=== PATIENT | male | born 1945 | race Caucasian/White ===

== ENCOUNTER → 2019-07-20 07:58 | Outpatient (BNVA) | payer MEDICARE, OTHER, SELFPAY | PROVIDERS: Family Provider Family Medicine; PCP Family Medicine; Visit Provider Urology | DX: R97.20 Elevated prostate specific antigen [PSA] (principal) | CPT/HCPCS: 81001; 84153 ==

== ENCOUNTER → 2020-01-19 08:03 | Outpatient (BNVA) | payer MEDICARE, OTHER, SELFPAY | PROVIDERS: Family Provider Family Medicine; PCP Family Medicine; Visit Provider Urology | DX: R97.20 Elevated prostate specific antigen [PSA] (principal); Z87.438 Personal history of other diseases of male genital organs | CPT/HCPCS: 81003; 84153 ==

== ENCOUNTER → 2020-07-19 07:36 | Outpatient (BNVA) | payer MEDICARE, OTHER, SELFPAY | PROVIDERS: Family Provider Family Medicine; PCP Family Medicine; Visit Provider Urology | DX: R97.20 Elevated prostate specific antigen [PSA] (principal); Z87.438 Personal history of other diseases of male genital organs | CPT/HCPCS: 81003; 84153 ==

== ENCOUNTER → 2021-04-18 07:31 | Outpatient (BNVA) | payer MEDICARE, OTHER, SELFPAY | PROVIDERS: Family Provider Family Medicine; PCP Family Medicine; Visit Provider Urology | DX: Z87.438 Personal history of other diseases of male genital organs (principal); R97.20 Elevated prostate specific antigen [PSA] | CPT/HCPCS: 81003; 84153 ==

== ENCOUNTER → 2021-06-01 07:27 | Outpatient (BNVA) | payer MEDICARE, OTHER, SELFPAY | PROVIDERS: Family Provider Family Medicine; PCP Family Medicine; Visit Provider Urology | DX: R31.0 Gross hematuria (principal) | CPT/HCPCS: 81003 ==

== ENCOUNTER 2022-04-18 11:17 | Outpatient (CLI) | payer MEDICARE, OTHER, SELFPAY ==
[2022-04-18 12:42] LABS: Prostate Specific AG Urology 3.36 ng/mL (0-4)
== END 2022-04-18 11:18 | disposition home or self-care (01) ==
LOC: LAB 11:26
PROVIDERS: PCP Family Medicine; Visit Provider Urology
DX: R97.20 Elevated prostate specific antigen [PSA] (principal)
CPT/HCPCS: 36415; 84153

== ENCOUNTER → 2022-04-24 07:54 | Outpatient (BNVA) | payer MEDICARE, OTHER, SELFPAY | PROVIDERS: PCP Family Medicine; Visit Provider Urology | DX: R97.20 Elevated prostate specific antigen [PSA] (principal); N40.1 Benign prostatic hyperplasia with lower urinary tract symptoms; Z98.890 Other specified postprocedural states; R31.0 Gross hematuria; Z87.438 Personal history of other diseases of male genital organs | CPT/HCPCS: 81003 ==

== ENCOUNTER 2022-07-27 12:21 | Outpatient (CLI) | payer MEDICARE, OTHER, SELFPAY ==
[2022-07-27 13:21] LABS: Anion Gap 14.3 (5-19); Blood Urea Nitrogen 15 mg/dL (8-23); Calcium 8.6 mg/dL (8.5-10.5); Carbon Dioxide 25 mmol/L (22-29); Chloride 105 mmol/L (98-107); Glucose 109 mg/dL (65-115); NT Pro B Type Natriuretic Pept 60 pg/mL (0-450); Osmolality Calculated 291 mOsm/kg (285-295); Potassium 4.3 mmol/L (3.5-5.1); Sodium 140 mmol/L (136-145)
== END 2022-07-27 12:22 | disposition home or self-care (01) ==
LOC: LAB 12:27
PROVIDERS: PCP Family Medicine; Visit Provider Student in an Organized Health Care Education/Training Program
DX: I10 Essential (primary) hypertension (principal); R60.0 Localized edema
CPT/HCPCS: 36415; 80048; 83880

== ENCOUNTER 2023-02-10 01:17 | Emergency (ER) | payer MEDICARE, OTHER, SELFPAY ==
[2023-02-10] VITALS (8 sets, daily range): BP systolic 101–137; BP diastolic 60–99; PULSE 79–159; RESP 13–22; TEMP 36.6; O2SAT 92–97; BMI 28.8
--- NOTE | 2023-02-10 01:33 | XRR_ITS ---
PROCEDURE INFORMATION: Exam: XR Chest Exam date and time: 02/10/2023 1:42 AM Age: 77 years old Clinical indication: Pain; Chest pressure; Patient HX: C/O chest discomfort with tachycardia in the 150s. ; Additional info: Palpitations TECHNIQUE: Imaging protocol: Radiologic exam of the chest. Views: 1 view. COMPARISON: CR XR chest 1V [id number] 05/03/2017 1:07 AM FINDINGS: Lungs: There are some strandy and hazy opacities present in the left lung base and some subtle increased interstitial opacities present in the right lower hemithorax may represent atelectasis. Mild pulmonary edema could have this appearance. Additionally bilateral basilar interstitial pneumonitis could this appearance. Pleural spaces: Unremarkable. No pleural effusion. No pneumothorax. Heart/Mediastinum: Unremarkable. No cardiomegaly. Bones/joints: Unremarkable. XR/XR chest 1V portable [id number] IMPRESSION: Strandy and hazy opacities present in the left lung base and some subtle increased interstitial opacity seen right lower hemithorax could represent atelectasis versus basilar interstitial pneumonitis or pulmonary edema.
--- NOTE | 2023-02-10 01:33 | ECG_ITS ---
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 Measurements Intervals [place] Rate: 154 P: 0 MD: 0 QRS: 3 QRSD: 90 T: 36 QT: 254 QTc: 407 Interpretive Statements ATRIAL FLUTTER WITH RAPID VENTRICULAR RESPONSE No previous ECG available for comparison Electronically Signed On 02-10-2023 9:58:35 TOUCH UP CARVER by Lawrence Camargo M.D. [email or web address] centerMI [id number] f
[2023-02-10] MEDS: dilTIAZem 5 mg/mL SDV 5 mL 15 MG IVP (01:37)
[2023-02-10 01:38] LABS: Basophils % 0.5 %; Eosinophils # 0.2 10^3/uL (0.0-0.8); Eosinophils % 2.9 %; Hematocrit 36.8 % (37-53); Lymphocytes # 0.7 10^3/uL (0.8-4.8); Lymphocytes % 8.2 %; Mean Corpuscular HGB Conc 35.1 g/dL (30-55); Mean Corpuscular Hemoglobin 33.3 pg (27-33); Mean Corpuscular Volume 95.1 fl (82-101); Mean Platelet Volume 9.2 fL (7.4-10.4); Monocytes # 0.9 10^3/uL (0.2-0.9); Monocytes % 11.1 %; Neutrophils # 6.08 10^3/uL (1.8-7.7); Neutrophils % 76.8 %; Nucleated Red Blood Cells % 0 %; Platelet Count 158 10^3/cmm (157-399); Red Blood Count 3.87 10^6/uL (3.85-5.65); Red Cell Distribution Width 12.7 % (12.1-15.1); White Blood Count 7.92 10^3/uL (3.29-11.43)
--- NOTE | 2023-02-10 01:53 | W.ED.ARRPALP ---
HPI - Arrhythmia/Palpitations General: Chief Complaint: Arrhythmia/Palpitations Stated Complaint: Chest tightness sob Time Seen by Provider: 02/10/23 01:26 Source: patient History of Present Illness: 77-year-old gentleman with history of atrial fibrillation. No history of coronary disease. He was recently taken off of diltiazem, as he believes his heart rate was getting too low. He states that he was put on propafenone which she has been taking religiously. Around 7 the last evening, he noticed that his heart was beating fast. It is continued to do so despite taking his night dose. He denies recent illness. He denies overt chest pain. He is having palpitations. He is mildly short of breath. No vomiting or diarrhea. No recent fever. MD complaint: rapid heart beat Associated symptoms: Deny nausea or vomiting Review of Systems Const: Denies: fever(s), chills or body aches Eyes: Denies: change in vision Card: Reports: palpitations; Denies: chest pain Resp: Reports: dyspnea; Denies: productive cough, non-productive cough or wheezing GI: Denies: abdominal pain, nausea, vomiting, diarrhea or hematochezia Skin/Breast: Denies: rash Neuro: Denies: headache(s), weakness in extremities, dizziness or confusion PFSH ED PFSH: Medical History History of prostatitis Normal colonoscopy Hypertension Hyperlipidemia Elevated PSA Chronically elevated PSA with normal ADARSH's. 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 Negative biopsy and follow-up -3 T MRI. Surgical History Hx of transurethral resection of prostate H/O vasectomy Family History Mother , at age 78 Myocardial infarction (lateral wall) Father , at age 83 Emphysema lung Social History Smoking and tobacco/nicotine status: never used tobacco/nicotine Alcohol intake: never Marital status: Current occupational status: employed Physical Exam Const: GENERAL APPEARANCE: cooperative and ill appearing (Mildly); not frail appearing HENMT: COMMON NORMALS: normocephalic, atraumatic and Normal external nose present HEAD & SCALP: normocephalic and atraumatic FACE & SINUS: normal facial exam and face symmetric NOSE: Normal external nose present Eye: COMMON NORMALS: Equal, round and reactive pupils present and EOMs intact bilaterally PUPIL: Yes Equal, round and reactive pupils present Neck/C-Spine: GENERAL: Yes trachea midline Chest: CHEST: Yes Symmetrical chest wall rise Resp: COMMON NORMALS: normal respiratory effort, No retractions, No use of accessory muscles and clear to auscultation bilaterally AUSCULTATION: clear to auscultation bilaterally Cardio: COMMON NORMALS: regular rate RATE: regular rate and tachycardic RHYTHM: abnormal rhythm irregularly irregular GI: COMMON NORMALS: Normal to inspection, nondistended, normoactive bowel sounds present Extremity: GENERAL: Yes edema (1+) Neuro: JOSE COMA SCALE: document GCS findings [place] coma scale eye opening: Spontaneous Jose coma scale verbal response: Orientated [place] coma scale motor response: Obey commands Jose coma scale total score: 15 SENSORY EXAM: Yes extremities (intact) Psych: COMMON NORMALS: speech normal SPEECH: Yes normal speech Skin: COMMON NORMALS: no rashes or lesions noted GENERAL SKIN EXAM: no rashes or lesions noted Course Vital Signs: Vital signs: Vital Signs Temperature 98 F 02/10/23 01:21 Pulse Rate 80 02/10/23 03:00 Respiratory Rate 22 H 02/10/23 03:00 Blood Pressure 115/60 02/10/23 03:00 Pulse Oximetry 93 02/10/23 03:00 Oxygen Delivery Me thod Room Air 02/10/23 03:00 MDM - Arrhythmia/Palpitations Medical Decision Making Patient presenting in atrial fibrillation with a rate of 160 or so. His EKG shows atrial flutter with a rate of 160, normal axis, no acute ST wave changes. The patient was bolused with 15 mg of diltiazem, which transiently slowed his rate, but his rate is still between 130 and 160. Spontaneous conversion to sinus rhythm with a rate of 80 following the initial bolus. No repeat boluses or drips given. Symptoms are resolved. CBC is not remarkable. BMP is not remarkable. His BNP is 872 with a troponin of 25. He had a recent cardiac catheterization showing no coronary disease. His TSH is mildly high. Chest x-ray is nonacute. He will be allowed discharge. He is to continue his normal medication. If symptoms recur, he was told that he may take 1 diltiazem at home and wait 1 to 1.5 hours to see if symptoms resolved prior to coming in unless he is significantly symptomatic. Otherwise he should return. Outpatient follow-up with his cardiology team at [facility]. Lab Data 02/10/23 01:25 02/10/23 01:25 Laboratory Results WBC 7.92 10^3/uL (3.29-11.43) 02/10/23 01:25 RBC 3.87 10^6/uL (3.85-5.65) 02/10/23 01:25 Hgb 12.90 g/dL (11.27-16.99) 02/10/23 01:25 Hct 36.8 % (37-53) L 02/10/23 01:25 MCV 95.1 fl (82-101) 02/10/23 01:25 MCH 33.3 pg (27-33) H 02/10/23 01:25 MCHC 35.1 g/dL (30-55) 02/10/23 01:25 RDW 12.7 % (12.1-15.1) 02/10/23 01:25 Plt Count 158 10^3/cmm (157-399) 02/10/23 01:25 MPV 9.2 fL (7.4-10.4) 02/10/23 01:25 Neut % (Auto) 76.8 % 02/10/23 01:25 Lymph % (Auto) 8.2 % 02/10/23 01:25 [place] % (Auto) 11.1 % 02/10/23 01:25 Eos % (Auto) 2.9 % 02/10/23 01:25 Baso % (Auto) 0.5 % 02/10/23 01:25 Neut # (Auto) 6.08 10^3/uL (1.8-7.7) 02/10/23 01:25 Lymph # (Auto) 0.7 10^3/uL (0.8-4.8) L 02/10/23 01:25 [place] # (Auto) 0.9 10^3/uL (0.2-0.9) 02/10/23 01:25 Eos # (Auto) 0.2 10^3/uL (0.0-0.8) 02/10/23 01:25 Baso # (Auto) 0.0 10^3/uL (0.0-0.1) 02/10/23 01:25 Nucleated RBC % (auto) 0 % 02/10/23 01:25 Nucleated RBCs # 0.0 /100WBC 02/10/23 01:25 PT 18.80 SECONDS (12.1-14.9) H 02/10/23 01:25 INR 1.52 (0.8-1.2) H 02/10/23 01:25 APTT 41.1 SECONDS (23.9-36.7) H 02/10/23 01:25 Sodium 139 mmol/L (136-145) 02/10/23 01:25 Potassium 4.0 mmol/L (3.5-5.1) 02/10/23 01:25 Chloride 101 mmol/L (98-107) 02/10/23 01:25 Carbon Dioxide 26 mmol/L (22-29) 02/10/23 01:25 Anion Gap 16.0 (5-19) 02/10/23 01:25 BUN 21 mg/dL (8-23) 02/10/23 01:25 Creatinine 1.0 mg/dL (0.7-1.2) 02/10/23 01:25 GFR Calculation Not Reportable 02/10/23 01:25 Glucose 168 mg/dL (65-115) H 02/10/23 01:25 Calculated Osmolality 295 mOsm/kg (285-295) 02/10/23 01:25 Calcium 9.3 mg/dL (8.5-10.5) 02/10/23 01:25 Total Bilirubin 0.6 mg/dL (0.15-1.2) 02/10/23 01:25 AST 17 U/L (0-40) 02/10/23 01:25 ALT 30 U/L (0-41) 02/10/23 01:25 Alkaline Phosphatase 71 U/L (40-130) 02/10/23 01:25 Troponin T Baseline 25 ng/L (0-15) H 02/10/23 01:25 NT-Pro-B Natriuret Pep 872 pg/mL (0-450) H 02/10/23 01:25 Total Protein 7.2 g/dL (6.6-8.7) 02/10/23 01:25 Albumin 4.1 g/dL (3.5-5.2) 02/10/23 01:25 Globulin 3.1 g/dL (1.3-4.6) 02/10/23 01:25 TSH 4.49 uIU/mL (0.27-4.20) H 02/10/23 01:25 XR interpretation done by ED provider, pending radiology final review Discharge Plan Discharge Patient Disposition: Home Clinical Impression: Atrial fibrillation with rapid ventricular response Condition: Stable Prescriptions: No Action diltiazem HCl [Cartia XT] 120 mg capsule,extended release 24hr 120 mg PO DAILY multivitamin Tablet 1 tab PO DAILY coenzyme Q10 [CoQ-10] 100 mg capsule 200 mg PO DAILY Glucosamine Chondroitin 550-30-1 mg capsule PO DAILY magnesium gluconate [Mag-G] 27 mg magnesium (500 mg) tablet 27 mg PO DAILY resveratrol 250 mg capsule See Rx Instructions PO DAILY Rx Instructions: PO daily; cholecalciferol (vitamin D3) 50 mcg (2,000 unit) capsule 50 mcg PO DAILY zinc 50 mg tablet 50 mg PO DAILY losartan 25 mg tablet 25 mg PO DAILY finasteride 5 mg tablet 5 mg PO QDAY Qty: 90 3RF atorvastatin 20 mg tablet 20 mg PO DAILY Qty: 90 3RF Discharge Orders: Discharge ED (Routine); Ordered 02/10/23 Ordered By: Sam Gutierrez Referrals: Kamron Stauffer DO [Primary Care Provider] - 4-7 days Patient Instructions: A-fib (Atrial Fibrillation) (ED) Activity Restrictions/Additional Instructions: Return for return of rapid heart rate, any chest discomfort, shortness of breath, other concerning symptoms. Follow-up with your doctor next week. Let your superintendent construction know you were here with rapid heart rate, they may wish to change or augment treatment. Coding Level of Care Code ED Cyber Ops Planner for Joseph Springer
[2023-02-10 01:54] LABS: INR 1.52 (0.8-1.2)
[2023-02-10 01:55] LABS: Partial Thromboplastin Time 41.1 SECONDS (23.9-36.7)
[2023-02-10] MEDS: sodium chloride 0.9% 1,000 ML 999 ML IV (02:00)
[2023-02-10 02:07] LABS: Troponin(5th) Baseline 25 ng/L (0-15)
[2023-02-10 02:15] LABS: Alanine Aminotransferase 30 U/L (0-41); Albumin Level 4.1 g/dL (3.5-5.2); Alkaline Phosphatase 71 U/L (40-130); Aspartate Amino Transferase 17 U/L (0-40); Blood Urea Nitrogen 21 mg/dL (8-23); Calcium 9.3 mg/dL (8.5-10.5); Carbon Dioxide 26 mmol/L (22-29); Chloride 101 mmol/L (98-107); Globulin 3.1 g/dL (1.3-4.6); Glucose 168 mg/dL (65-115); NT Pro B Type Natriuretic Pept 872 pg/mL (0-450); Osmolality Calculated 295 mOsm/kg (285-295); Sodium 139 mmol/L (136-145); Thyroid Stimulating Hormone 4.49 uIU/mL (0.27-4.20); Total Bilirubin 0.6 mg/dL (0.15-1.2); Total Protein 7.2 g/dL (6.6-8.7)
--- NOTE | 2023-02-10 03:33 | ECG_ITS ---
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 Measurements Intervals [place] Rate: 82 P: 21 [place]: 160 QRS: 4 QRSD: 90 T: 54 QT: 336 QTc: 394 Interpretive Statements SINUS RHYTHM LOW QRS VOLTAGE IN PRECORDIAL LEADS [QRS DEFLECTION < 1.0 mV IN CHEST LEADS] No previous ECG available for comparison Electronically Signed On 02-10-2023 10:00:28 JIG MAKER by Lawrence Camargo M.D. [id number]
== END 2023-02-10 03:14 | disposition home or self-care (01) ==
PROVIDERS: Emergency Provider Emergency Medicine; PCP Family Medicine
DX: I48.20 Chronic atrial fibrillation, unspecified (principal); I10 Essential (primary) hypertension; E78.5 Hyperlipidemia, unspecified
CPT/HCPCS: 71045; 80053; 83880; 84443; 84484; 85025; 85610; 85730; 93005; 96374; 99285; J3490; J7030

== ENCOUNTER 2023-02-11 17:47 | Emergency (ER) | payer MEDICARE, OTHER, SELFPAY ==
[2023-02-11] VITALS (30 sets, daily range): BP systolic 109–134; BP diastolic 65–80; PULSE 71–167; RESP 12–27; O2SAT 92–98; BMI 25.1
--- NOTE | 2023-02-11 18:01 | XRR_ITS ---
PROCEDURE INFORMATION: Exam: XR Chest Exam date and time: 02/11/2023 6:14 PM Age: 77 years old Clinical indication: Other: High heart rate; Additional info: Palpitations TECHNIQUE: Imaging protocol: Radiologic exam of the chest. Views: 1 view. COMPARISON: CR (CHEST, ) 02/10/2023 1:42 AM FINDINGS: Lungs: Subsegmental streaky opacity in the lateral left lung base, similar to prior allowing for differences in lung inflation, may represent atelectasis and/or consolidation. Pleural spaces: No large pleural effusion. No pneumothorax. Heart/Mediastinum: Unremarkable cardiomediastinal silhouette. Bones/joints: No acute abnormality. XR/XR chest 1V portable [id number] IMPRESSION: Streaky opacity in the lateral left lung base, similar to prior allowing for differences in lung inflation, may represent atelectasis and/or consolidation.
[2023-02-11] MEDS: dilTIAZem 5 mg/mL SDV 5 mL 25 MG IVP (18:06)
--- NOTE | 2023-02-11 18:06 | ECG_ITS ---
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 Measurements Intervals [place] Rate: 151 P: 0 [place]: 0 QRS: -9 QRSD: 85 T: 34 QT: 273 QTc: 434 Interpretive Statements ATRIAL FIBRILLATION WITH RAPID VENTRICULAR RESPONSE NONSPECIFIC ST & T-WAVE ABNORMALITY Compared to ECG 02/10/2023 02:57:48 T-wave abnormality now present Sinus rhythm no longer present Electronically Signed On 02-11-2023 22:58:02 INDEPENDENT SALES REPRESENTATIVE by Lawrence Camargo M.D. [id number] f
[2023-02-11 18:27] LABS: Basophils % 0.3 %; Eosinophils # 0.1 10^3/uL (0.0-0.8); Eosinophils % 1.3 %; Hematocrit 35.3 % (37-53); Lymphocytes # 0.8 10^3/uL (0.8-4.8); Lymphocytes % 10.9 %; Mean Platelet Volume 9.4 fL (7.4-10.4); Monocytes # 0.8 10^3/uL (0.2-0.9); Monocytes % 11.5 %; Neutrophils % 75.6 %; Nucleated Red Blood Cells % 0 %; Platelet Count 182 10^3/cmm (157-399); Red Blood Count 3.64 10^6/uL (3.85-5.65); Red Cell Distribution Width 12.9 % (12.1-15.1); White Blood Count 6.88 10^3/uL (3.29-11.43)
--- NOTE | 2023-02-11 18:27 | W.ED.ARRPALP ---
HPI - Arrhythmia/Palpitations General: Chief Complaint: Arrhythmia/Palpitations Stated Complaint: high bp Time Seen by Provider: 02/11/23 17:57 History of Present Illness: Presents to the ER with complaining of heart palpitations shortness of breath. Patient does have a history of A-fib and is on antiarrhythmic medicine. Patient has taken did not miss any doses. Patient had this same thing happened to him yesterday where he come in this ER and was given Cardizem and if complete workup and sent home. Patient does have Cardizem at home that when he was put on his new antiarrhythmic they told him to stop. Patient did take 1 dose of it today. It helped throughout the day but is heart rate Getting faster throughout the day until decided to come in for reevaluation. Review of Systems General: Reports: 10 or more systems reviewed and unremarkable except in HPI and below PFSH ED PFSH: Medical History History of prostatitis Normal colonoscopy Hypertension Hyperlipidemia Elevated PSA Chronically elevated PSA with normal ADARSH's. 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 Negative biopsy and follow-up -3 T MRI. Surgical History Hx of transurethral resection of prostate H/O vasectomy Family History Mother , at age 78 Myocardial infarction (lateral wall) Father , at age 83 Emphysema lung Social History Smoking and tobacco/nicotine status: never used tobacco/nicotine Alcohol intake: never Marital status: Current occupational status: employed Physical Exam Const: COMMON NORMALS: no acute distress, average body habitus, patient oriented x3, no limitations, healthy appearing, alert and well nourished HENMT: COMMON NORMALS: normocephalic, atraumatic, hearing grossly normal bilaterally, external ears normal, Normal external nose present, moist oral mucous membranes and oropharynx normal HEAD & SCALP: normocephalic and atraumatic NOSE: Normal external nose present EXTERNAL EAR: Yes external ears normal Neck/C-Spine: COMMON NORMALS: full ROM, no lymphadenopathy, supple, no meningeal signs, no JVD and Thyroid normal THYROID: Thyroid normal Chest: COMMONS NORMALS: normal inspection of the chest and normal palpation of entire chest wall Resp: COMMON NORMALS: normal respiratory effort, No retractions, No use of accessory muscles and clear to auscultation bilaterally AUSCULTATION: clear to auscultation bilaterally Cardio: COMMON NORMALS: no JVD, S1 normal heart sound present, S2 normal heart sound present, No gallops present (Cardio), No clicks present (Cardio), No murmurs present (Cardio) and No rub (Cardio); negative for regular rate (Irregularly irregular tachycardic rhythm) and negative for regular rhythm RATE: abnormal rate (Irregularly irregular tachycardic rhythm) RHYTHM: abnormal rhythm HEART SOUNDS: S1 normal heart sound present and S2 normal heart sound present GI: COMMON NORMALS: Normal to inspection, nondistended, normoactive bowel sounds present, Soft to palpation, non-tender, No hepatosplenomegaly present and no masses PALPATION: Yes Soft to palpation and Yes No hepatosplenomegaly present Neuro: COMMON NORMALS: patient oriented x3 SENSORIUM/ORIENTATION: Yes alert MENINGEAL SIGNS: Yes no meningeal signs Course Vital Signs: Vital signs: Vital Signs Pulse Rate 77 02/11/23 20:35 Respiratory Rate 17 02/11/23 20:35 Blood Pressure 125/65 02/11/23 20:35 Pulse Oximetry 92 02/11/23 20:35 Oxygen Delivery Me thod Room Air 02/11/23 17:52 MDM - Arrhythmia/Palpitations Medical Decision Making Presents to the ER in [facility] with RVR. Patient is already on propafenone. Patient took diltiazem earlier today which seemed to help but then when it started running out his rate climbs so then he came to the ER for further evaluation. Lab work was obtained cardiac enzymes chest x-ray. Patient was given 25 mg of Cardizem IV which slowed his heart rate down for a little while but then when he spit back up he was placed on a Cardizem drip. After a while his heart converted back into a sinus rhythm. Patient felt a lot better the drip was titrated off patient stayed in a sinus rhythm and patient said he is ready to go home. Patient can call his aerospace project engineer first thing in the morning. Patient be discharged. Differential Diagnosis Likely palpitations, artial fibrillation and artial flutter; Unlikely anxiety, sinus tachycardia, ventricular premature beats, supraventricular tachycardia, ventricular tachycardia or WPW Medical Records I reviewed the patient's medical records. Lab Data I reviewed the patient's lab results. 02/11/23 18:02 02/11/23 18:02 Radiology Impressions Chest X-Ray 02/11/23 18:01 IMPRESSION: Streaky opacity in the lateral left lung base, similar to prior allowing for differences in lung inflation, may represent atelectasis and/or consolidation. Laboratory Results WBC 6.88 10^3/uL (3.29-11.43) 02/11/23 18: RBC 3.64 10^6/uL (3.85-5.65) L 02/11/23 18: Hgb 12.00 g/dL (11.27-16.99) 02/11/23 18: Hct 35.3 % (37-53) L 02/11/23 18: MCV 97.0 fl (82-101) 02/11/23 18: MCH 33.0 pg (27-33) 02/11/23 18: MCHC 34.0 g/dL (30-55) 02/11/23 18: RDW 12.9 % (12.1-15.1) 02/11/23 18:02 Plt Count 182 10^3/cmm (157-399) 02/11/23 18:02 MPV 9.4 fL (7.4-10.4) 02/11/23 18:02 Neut % (Auto) 75.6 % 02/11/23 18: Lymph % (Auto) 10.9 % 02/11/23 18:02 [place] % (Auto) 11.5 % 02/11/23 18:02 Eos % (Auto) 1.3 % 02/11/23 18:02 Baso % (Auto) 0.3 % 02/11/23 18:02 Neut # (Auto) 5.20 10^3/uL (1.8-7.7) 02/11/23 18:02 Lymph # (Auto) 0.8 10^3/uL (0.8-4.8) 02/11/23 18:02 [place] # (Auto) 0.8 10^3/uL (0.2-0.9) 02/11/23 18:02 Eos # (Auto) 0.1 10^3/uL (0.0-0.8) 02/11/23 18:02 Baso # (Auto) 0.0 10^3/uL (0.0-0.1) 02/11/23 18:02 Nucleated RBC % (auto) 0 % 02/11/23 18:02 Nucleated RBCs # 0.0 /100WBC 02/11/23 18:02 Sodium 139 mmol/L (136-145) 02/11/23 18:02 Potassium 3.9 mmol/L (3.5-5.1) 02/11/23 18:02 Chloride 104 mmol/L (98-107) 02/11/23 18:02 Carbon Dioxide 24 mmol/L (22-29) 02/11/23 18:02 Anion Gap 14.9 (5-19) 02/11/23 18:02 BUN 22 mg/dL (8-23) 02/11/23 18:02 Creatinine 1.2 mg/dL (0.7-1.2) 02/11/23 18:02 GFR Calculation Not Reportable 02/11/23 18:02 Glucose 184 mg/dL (65-115) H 02/11/23 18:02 Calculated Osmolality 296 mOsm/kg (285-295) H 02/11/23 18:02 Calcium 8.5 mg/dL (8.5-10.5) 02/11/23 18:02 Magnesium 2.1 mg/dL (1.7-2.3) 02/11/23 18:02 Total Bilirubin 0.6 mg/dL (0.15-1.2) 02/11/23 18:02 AST 15 U/L (0-40) 02/11/23 18:02 ALT 24 U/L (0-41) 02/11/23 18:02 Alkaline Phosphatase 62 U/L (40-130) 02/11/23 18:02 Troponin T Baseline 26 ng/L (0-15) H 02/11/23 18:02 Total Protein 6.7 g/dL (6.6-8.7) 02/11/23 18:02 Albumin 4.0 g/dL (3.5-5.2) 02/11/23 18:02 Globulin 2.7 g/dL (1.3-4.6) 02/11/23 18:02 All radiology interpretation(s) finalized by discharge EKG Data EKG 1: I personally reviewed and interpreted this EKG as follows: EKG interpretation date: 02/11/23 EKG interpretation time: 18:06 Prior EKG tracings: available for review Interpretation: EKG showed ventricular rate 151 beats minute, QRS duration 85, QTc of 359, atrial fibrillation with RVR, nonspecific ST-T wave abnormality Other EKG comments: Chest X-Ray 02/11/23 18:01 IMPRESSION: Streaky opacity in the lateral left lung base, similar to prior allowing for differences in lung inflation, may represent atelectasis and/or consolidation. Discharge Plan Discharge Patient Disposition: Home Clinical Impression: Atrial fibrillation with rapid ventricular response Condition: Stable Prescriptions: No Action diltiazem HCl [Cartia XT] 120 mg capsule,extended release 24hr 120 mg PO DAILY multivitamin Tablet 1 tab PO DAILY coenzyme Q10 [CoQ-10] 100 mg capsule 200 mg PO DAILY Glucosamine Chondroitin 550-30-1 mg capsule PO DAILY magnesium gluconate [Mag-G] 27 mg magnesium (500 mg) tablet 27 mg PO DAILY resveratrol 250 mg capsule See Rx Instructions PO DAILY Rx Instructions: PO daily; cholecalciferol (vitamin D3) 50 mcg (2,000 unit) capsule 50 mcg PO DAILY zinc 50 mg tablet 50 mg PO DAILY losartan 25 mg tablet 25 mg PO DAILY finasteride 5 mg tablet 5 mg PO QDAY Qty: 90 3RF atorvastatin 20 mg tablet 20 mg PO DAILY Qty: 90 3RF Discharge Orders: Discharge ED (Routine); Ordered 02/11/23 Ordered By: Dean Massey Referrals: Myron Abbasi DO [Primary Care Provider] - 1 week Patient Instructions: Atrial Fibrillation Activity Restrictions/Additional Instructions: Please call your aerospace project engineer first thing in the morning. Otherwise plan on following up with your family practice physician within next 7 to 10 days for further evaluation and treatment. If your heart converts back into atrial fibrillation please feel free to return to the ER. Coding Level of Care Code ED Vet Assistant for Joseph Springer
[2023-02-11] MEDS: dilTIAZem 100 MG in sodium chloride 0.9% (add-van) 100 ML IV (18:41)
[2023-02-11 18:44] LABS: Alanine Aminotransferase 24 U/L (0-41); Alkaline Phosphatase 62 U/L (40-130); Anion Gap 14.9 (5-19); Aspartate Amino Transferase 15 U/L (0-40); Blood Urea Nitrogen 22 mg/dL (8-23); Calcium 8.5 mg/dL (8.5-10.5); Carbon Dioxide 24 mmol/L (22-29); Chloride 104 mmol/L (98-107); Globulin 2.7 g/dL (1.3-4.6); Glucose 184 mg/dL (65-115); Magnesium 2.1 mg/dL (1.7-2.3); Osmolality Calculated 296 mOsm/kg (285-295); Potassium 3.9 mmol/L (3.5-5.1); Sodium 139 mmol/L (136-145); Total Bilirubin 0.6 mg/dL (0.15-1.2); Total Protein 6.7 g/dL (6.6-8.7)
[2023-02-11 18:47] LABS: Troponin(5th) Baseline 26 ng/L (0-15)
== END 2023-02-11 21:16 | disposition home or self-care (01) ==
PROVIDERS: Emergency Provider Emergency Medicine; PCP Electrodiagnostic Medicine
DX: I48.20 Chronic atrial fibrillation, unspecified (principal); I10 Essential (primary) hypertension; E78.5 Hyperlipidemia, unspecified
CPT/HCPCS: 71045; 80053; 83735; 84484; 85025; 93005; 96365; 96375; 99285; J3490

== ENCOUNTER 2023-02-17 04:53 | Inpatient (IN) | payer MEDICARE, OTHER, SELFPAY ==
[2023-02-17] VITALS (13 sets, daily range): BP systolic 101–131; BP diastolic 61–89; PULSE 60–131; RESP 15–23; TEMP 36.7–37.6; O2SAT 90–96; BMI 29.5; BMI 30.1
--- NOTE | 2023-02-17 04:54 | ECG_ITS ---
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 Measurements Intervals [place] Rate: 131 P: 0 [place]: 0 QRS: 4 QRSD: 93 T: 56 QT: 312 QTc: 462 Interpretive Statements ATRIAL FIBRILLATION WITH RAPID VENTRICULAR RESPONSE Compared to ECG 02/11/2023 18:06:18 T-wave abnormality no longer present Electronically Signed On 02-17-2023 10:18:29 WOOL SCOURER by Lawrence Camargo M.D. [email or web address]/store/OM/[id number]
--- NOTE | 2023-02-17 05:01 | XRR_ITS ---
PROCEDURE INFORMATION: Exam: XR Chest Exam date and time: 02/17/2023 5:07 AM Age: 77 years old Clinical indication: Other: Palpitations, tachycardic, hypertensive; Patient HX: Palpitations with tachycardia and hypertension; Additional info: HTN TECHNIQUE: Imaging protocol: Radiologic exam of the chest. Views: 1 view. COMPARISON: CR (CHEST, ) 02/11/2023 6:14 PM FINDINGS: Lungs: Small dependent bibasilar atelectasis, left greater than right, with possible component of consolidation, especially in the left lower lobe. Mild bilateral pulmonary venous congestion without marjan pulmonary edema. Pleural spaces: No pleural effusion. No pneumothorax. Heart/Mediastinum: Cardiomediastinal silhouette is normal in size. Bones/joints: No acute fractures. XR/XR chest 1V portable [id number] IMPRESSION: 1. Small dependent bibasilar atelectasis, left greater than right, with possible component of consolidation, especially in the left lower lobe. 2. Mild bilateral pulmonary venous congestion without marjan pulmonary edema.
--- NOTE | 2023-02-17 05:02 | ED_ITS ---
HPI - General Adult 2 General: Chief complaint: Arrhythmia/Palpitations Stated complaint: high heart rate Time Seen by Provider: 02/17/23 04:55 Source: patient Mode of arrival: ambulatory Limitations: no limitations History of Present Illness: 77-year-old male who has a history of A- fib he is on Cardizem 120 mg extended release daily he also takes Rythmol. States over the last week he has been having increasing episodes of A-fib he is seen here twice last week. He denies any chest pain he has some dyspnea as he feels like his heart is racing. He denies any worsening improving factors. Denies any fever he states he is also had a cough over the last 5 days Associated symptoms: Reports dyspnea and palpitations; Deny chest pain, nausea, rash or vomiting Review of Systems 2 Const: Denies: fever(s), chills, body aches or change in appetite ENMT: Denies: throat pain or dental pain Card: Reports: palpitations; Denies: chest pain Resp: Reports: dyspnea and non-productive cough GI: Denies: abdominal pain, nausea, vomiting or diarrhea Musc: Denies: neck pain or back pain Skin/Breast: Denies: rash PFSH ED 2 PFSH: Medical History History of prostatitis Normal colonoscopy Hypertension Hyperlipidemia Elevated PSA Chronically elevated PSA with normal ADARSH's. 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 Negative biopsy and follow-up -3 T MRI. Surgical History Hx of transurethral resection of prostate H/O vasectomy Family History Mother , at age 78 Myocardial infarction (lateral wall) Father , at age 83 Emphysema lung Social History Smoking and tobacco/nicotine status: never used tobacco/nicotine Alcohol intake: never Marital status: Current occupational status: employed Course 2 Vital Signs: Vital signs: Vital Signs Temperature 99.6 F 02/17/23 04:57 Pulse Rate 116 H 02/17/23 05:42 Respiratory Rate 20 H 02/17/23 05:42 Blood Pressure 131/78 02/17/23 05:42 Pulse Oximetry 93 02/17/23 05:42 Oxygen Delivery Me thod Room Air 02/17/23 05:42 MDM - General Adult Medical Decision Making Patient presents with A-fib with RVR gave him 15 mg and 10 mg IV push he is still in the 130s did start a Cardizem drip he also had a low-grade fever along with cough x-ray shows lower lobe infiltrates COVID flu are negative we will get blood cultures start antibiotics will admit on a Cardizem drip. Medical Records I reviewed the patient's medical records. Lab Data I reviewed the patient's lab results. 02/17/23 05:07 02/17/23 05:07 Laboratory Results WBC 8.30 10^3/uL (3.29-11.43) 02/17/23 05:07 RBC 3.73 10^6/uL (3.85-5.65) L 02/17/23 05:07 Hgb 12.10 g/dL (11.27-16.99) 02/17/23 05:07 Hct 36.0 % (37-53) L 02/17/23 05:07 MCV 96.5 fl (82-101) 02/17/23 05:07 MCH 32.4 pg (27-33) 02/17/23 05:07 MCHC 33.6 g/dL (30-55) 02/17/23 05:07 RDW 12.9 % (12.1-15.1) 02/17/23 05:07 Plt Count 247 10^3/cmm (157-399) 02/17/23 05:07 MPV 8.6 fL (7.4-10.4) 02/17/23 05:07 Neut % (Auto) 83.8 % 02/17/23 05:07 Lymph % (Auto) 6.6 % 02/17/23 05:07 [place] % (Auto) 7.5 % 02/17/23 05:07 Eos % (Auto) 1.2 % 02/17/23 05:07 Baso % (Auto) 0.5 % 02/17/23 05:07 Neut # (Auto) 6.96 10^3/uL (1.8-7.7) 02/17/23 05:07 Lymph # (Auto) 0.6 10^3/uL (0.8-4.8) L 02/17/23 05:07 [place] # (Auto) 0.6 10^3/uL (0.2-0.9) 02/17/23 05:07 Eos # (Auto) 0.1 10^3/uL (0.0-0.8) 02/17/23 05:07 Baso # (Auto) 0.0 10^3/uL (0.0-0.1) 02/17/23 05:07 Nucleated RBC % (auto) 0 % 02/17/23 05:07 Nucleated RBCs # 0.0 /100WBC 02/17/23 05:07 Sodium 137 mmol/L (136-145) 02/17/23 05:07 Potassium 4.1 mmol/L (3.5-5.1) 02/17/23 05:07 Chloride 102 mmol/L (98-107) 02/17/23 05:07 Carbon Dioxide 26 mmol/L (22-29) 02/17/23 05:07 Anion Gap 13.1 (5-19) 02/17/23 05:07 BUN 13 mg/dL (8-23) 02/17/23 05:07 Creatinine 1.0 mg/dL (0.7-1.2) 02/17/23 05:07 GFR Calculation Not Reportable 02/17/23 05:07 Glucose 141 mg/dL (65-115) H 02/17/23 05:07 Calculated Osmolality 286 mOsm/kg (285-295) 02/17/23 05:07 Calcium 9.0 mg/dL (8.5-10.5) 02/17/23 05:07 Total Bilirubin 0.7 mg/dL (0.15-1.2) 02/17/23 05:07 AST 18 U/L (0-40) 02/17/23 05:07 ALT 30 U/L (0-41) 02/17/23 05:07 Alkaline Phosphatase 65 U/L (40-130) 02/17/23 05:07 NT-Pro-B Natriuret Pep 1207 pg/mL (0-450) H 02/17/23 05:07 Total Protein 7.1 g/dL (6.6-8.7) 02/17/23 05:07 Albumin 3.6 g/dL (3.5-5.2) 02/17/23 05:07 Globulin 3.5 g/dL (1.3-4.6) 02/17/23 05:07 Influenza Type A Ag negative (Negative) 02/17/23 05:34 Influenza Type B Ag negative (Negative) 02/17/23 05:34 SARS-CoV-2 Ag (Rapid) negative (Negative) 02/17/23 05:34 XR interpretation done by ED provider, pending radiology final review ED provider radiology interpretation(s): cxr lower lobe infiltrates EKG Data EKG 1: I personally reviewed and interpreted this EKG as follows: EKG interpretation date: 02/17/23 EKG interpretation time: 05:02 Interpretation: afib with rvr hr [address] or t wave abnormalities qrs 93 qtc 389 Discharge Plan Discharge Patient Disposition: Admitted As Inpatient Clinical Impression: Atrial fibrillation with rapid ventricular response, Pneumonia Condition: Stable Prescriptions: No Action diltiazem HCl [Cartia XT] 120 mg capsule,extended release 24hr 120 mg PO DAILY multivitamin Tablet 1 tab PO DAILY coenzyme Q10 [CoQ-10] 100 mg capsule 200 mg PO DAILY Glucosamine Chondroitin 550-30-1 mg capsule PO DAILY magnesium gluconate [Mag-G] 27 mg magnesium (500 mg) tablet 27 mg PO DAILY resveratrol 250 mg capsule See Rx Instructions PO DAILY Rx Instructions: PO daily; cholecalciferol (vitamin D3) 50 mcg (2,000 unit) capsule 50 mcg PO DAILY zinc 50 mg tablet 50 mg PO DAILY losartan 25 mg tablet 25 mg PO DAILY finasteride 5 mg tablet 5 mg PO QDAY Qty: 90 3RF atorvastatin 20 mg tablet 20 mg PO DAILY Qty: 90 3RF Referrals: Myron Abbasi DO [Primary Care Provider] - Coding Level of Care Code ED Model Maker for Joseph Springer
[2023-02-17] MEDS: sodium chloride 0.9% 1,000 ML 999 ML IV (05:08)
[2023-02-17] MEDS: dilTIAZem 5 mg/mL SDV 5 mL 15 MG IVP (05:09)
[2023-02-17 05:12] LABS: Basophils % 0.5 %; Eosinophils # 0.1 10^3/uL (0.0-0.8); Eosinophils % 1.2 %; Lymphocytes # 0.6 10^3/uL (0.8-4.8); Lymphocytes % 6.6 %; Mean Corpuscular HGB Conc 33.6 g/dL (30-55); Mean Corpuscular Hemoglobin 32.4 pg (27-33); Mean Corpuscular Volume 96.5 fl (82-101); Mean Platelet Volume 8.6 fL (7.4-10.4); Monocytes # 0.6 10^3/uL (0.2-0.9); Monocytes % 7.5 %; Neutrophils # 6.96 10^3/uL (1.8-7.7); Neutrophils % 83.8 %; Nucleated Red Blood Cells % 0 %; Platelet Count 247 10^3/cmm (157-399); Red Blood Count 3.73 10^6/uL (3.85-5.65); Red Cell Distribution Width 12.9 % (12.1-15.1)
[2023-02-17] MEDS: acetaminophen 500 mg Tablet 1000 MG PO (05:24)
--- NOTE | 2023-02-17 05:25 | PC.NURSE ---
Pt and refused Covid and Flu nasal swabs stating They do not belive in Covid and do not want anything in his nose.
[2023-02-17 05:30] LABS: Alanine Aminotransferase 30 U/L (0-41); Albumin Level 3.6 g/dL (3.5-5.2); Alkaline Phosphatase 65 U/L (40-130); Anion Gap 13.1 (5-19); Aspartate Amino Transferase 18 U/L (0-40); Blood Urea Nitrogen 13 mg/dL (8-23); Carbon Dioxide 26 mmol/L (22-29); Chloride 102 mmol/L (98-107); Globulin 3.5 g/dL (1.3-4.6); Glucose 141 mg/dL (65-115); Osmolality Calculated 286 mOsm/kg (285-295); Potassium 4.1 mmol/L (3.5-5.1); Sodium 137 mmol/L (136-145); Total Bilirubin 0.7 mg/dL (0.15-1.2); Total Protein 7.1 g/dL (6.6-8.7)
[2023-02-17] MEDS: dilTIAZem 5 mg/mL SDV 5 mL 10 MG IVP (05:39)
[2023-02-17 05:51] LABS: NT Pro B Type Natriuretic Pept 1207 pg/mL (0-450)
[2023-02-17 05:53] LABS: Influenza A by IFA negative (Negative); Influenza B by IFA negative (Negative); SARS Covid-2 Antigen negative (Negative)
[2023-02-17] MEDS: dilTIAZem 100 MG in sodium chloride 0.9% (add-van) 100 ML IV (06:35)
[2023-02-17] MEDS: cefTRIAXone 1,000 MG in sodium chloride 0.9% (plus) 50 ML 100 MG IV (06:37)
[2023-02-17] MEDS: azithromycin 500 MG in sodium chloride 0.9% 250 ML 250 MG IV (06:54)
[2023-02-17] MEDS: pantoprazole DR 40 mg Tablet PO (08:24)
[2023-02-17] MEDS: enoxaparin 40 mg/0.4 mL Syringe SUBCUT (08:38)
--- NOTE | 2023-02-17 10:14 | USCV_ITS ---
Jan Beckwith Age: 77 Gender: M : 1945 Exam Date: 02/17/2023 16:40 Ordering Phys: Red Chapa MD Technologist: Olu Ashraf Exam Location: [facility] [place] Indication: afib BP: 116 / 61 HR: 61 Rhythm: Sinus Technical Quality: Adequate MEASUREMENTS (Male / Female) Normal Values 2D ECHO LVOT Diameter 2.0 cm LV Ejection Fraction MOD 2C 59.5 % LV Ejection Fraction 2C AL 60.4 % LA Diameter 3.7 cm LA Width 3.2 cm LA Height 4.7 cm RA Width 4.1 cm RA Height 4.0 cm Aorta at Sinotubular Diameter 2.0 cm IVC Diameter 2.0 cm M-MODE Aortic Annulus Diameter 2.3 cm LA Ao Ratio MM 1.5 MV E Point Septal Separation 0.4 cm DOPPLER AV Peak Velocity 107.7 cm/s LVOT Peak Velocity 89.0 cm/s AV Area Cont Eq vti 2.1 cm squared AV Area Cont Eq pk 2.7 cm squared MV Peak Velocity 122.0 cm/s MV Area PHT 5.0 cm squared Mitral E to A Ratio 1.9 MV E' Velocity 47.5 cm/s Mitral E to MV E' Ratio 9.0 Mitral E to LV E' Lateral Ratio 8.0 Mitral E to LV E' Septal Ratio 10.3 TR Peak Velocity 276.7 cm/s TR Peak Gradient 30.6 mmHg TR Mean Velocity 207.1 cm/s TR Mean Gradient 18.5 mmHg TR Velocity Time Integral 88.7 cm Right Atrial Pressure 3.0 mmHg Pulmonary Artery Systolic Pressu 33.6 mmHg PV Peak Velocity 73.0 cm/s RV Acceleration Time 0.1 s RV Ejection Time 0.3 s RV AcT/ET 0.2 FINDINGS Left Ventricle Left ventricle is normal in size. LV systolic function is normal with EF 55 to 60%. No regional wall motion abnormalities are seen. Right Ventricle Normal in size and function Right Atrium Normal in size Left Atrium Normal in size Mitral Valve Structurally normal mitral valve. Mild mitral regurgitation. Aortic Valve Structurally normal aortic valve. No significant stenosis or regurgitation. Tricuspid Valve Mild tricuspid regurgitation. Pulmonary artery systolic pressure is normal. Pulmonic Valve Mild pulmonic regurgitation. Pericardium Normal Aorta Normal in size IVC Appears to be normal CONCLUSIONS LV systolic function is normal with EF 55 to 60%. Mitral regurgitation. Mild tricuspid regurgitation. Mild pulmonic regurgitation. No comparison studies are available Lawrence Camargo MD (Electronically Signed) Final Date: 18 February 2023 10:30 S
[2023-02-17 10:44] LABS: D Dimer 0.85 ug/mLFEU (0-0.59)
--- NOTE | 2023-02-17 10:45 | P.HP_ITS ---
Providers/Chief Complaint 2 Admitting Physician: Dorys Michaud MD Primary Care Provider: Myron Abbasi DO Chief Complaint: high heart rate History of Present Illness Jan Beckwith is a 77 year old male with past medical history of atrial fibrillation, hyperlipidemia, hypertension, obstructive sleep apnea on CPAP who is chronically on 225 mg of extended release propafenone for A-fib along with Xarelto for anticoagulation presented to the ER because of of rapid heart rate which he felt at around 3 AM along with difficulty in breathing. 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 Today is Saturday. Symptoms are not associated with chest pain, dizziness, nausea or vomiting. Currently he is on 15 of Cardizem Drip. Denies any other changes recently on medications. Also gives history of sleep apnea for which he uses CPAP at 10 nightly. Review of Systems 2 General: Reports: 10 or more systems reviewed and unremarkable except in HPI and below Const: Denies: fever(s), chills, body aches, change in appetite, change in weight, malaise, night sweats, diaphoresis, change in sleep pattern, daytime sleepiness or snoring Eyes: Denies: change in vision, blurry vision, photophobia, eye discomfort or eye discharge ENMT: Denies: throat pain, enlarged tonsils, hoarseness, mouth pain, oral sores, dry mouth, tinnitus, nasal congestion or post nasal drip Card: Denies: chest pain, palpitations, irregular heart rhythm, edema, swelling of feet/ankles, lightheadedness, syncope, pre-syncope, dyspnea on exertion, orthopnea, leg pain with exertion or acrocyanosis Resp: Denies: dyspnea, productive cough, non-productive cough, wheezing, stridor, pain on inspiration, change in phlegm color, hemoptysis or chest congestion GI: Denies: abdominal pain, nausea, vomiting, hematemesis, coffee ground emesis, dysphagia, heartburn, diarrhea, constipation, bloating, GI cramping, change in bowel habits, pain on defecation, hematochezia or melena : Denies: flank pain, difficulty urinating, dysuria, urinary frequency, urinary urgency, urinary hesitancy, urinary dribbling, difficulty starting urination, change in urine stream, nocturia or hematuria Musc: Denies: neck pain, back pain, extremity pain, joint pain, joint swelling, joint redness, joint stiffness or limited range of motion Neuro: Denies: headache(s), numbness in extremities, weakness in extremities, sensory changes, lack of coordination, difficulty walking, frequent falls, dizziness, vertigo, confusion, Slurred speech present, difficulty communicating thoughts or seizure-like activity Psych: Denies: anxiety, depression, mood swings, panic attacks, hopelessness or irritability Endo: Denies: polyuria, polydipsia, tired all the time, cold intolerance, excessive sweating, flushing or heat intolerance Mak/Lymph: Denies: easy bruising or easy bleeding All/Imm: Denies: tongue swelling, facial swelling or acute wheezing Medications/Allergies Home Medications Medication Instructions Recorded Confirmed Last Taken Type cholecalciferol (vitamin D3) 50 50 mcg PO DAILY 07/20/19 02/17/23 02/15/23 History mcg (2,000 unit) capsule coenzyme Q10 100 mg capsule 200 mg PO DAILY 07/20/19 02/17/23 02/15/23 History (CoQ-10) diltiazem HCl 120 mg 120 mg PO DAILY 07/20/19 02/17/23 02/15/23 History capsule,extended release 24 hr (Cartia XT) glucosamine sulf dipot 1 cap PO DAILY 07/20/19 02/17/23 02/15/23 History chlr,msm,chond 550 mg-C 30 mg-sunny 1 mg capsule (Glucosamine Chondroitin) magnesium gluconate 27 mg 27 mg PO DAILY 07/20/19 02/17/23 02/15/23 History magnesium (500 mg) tablet (Mag-G) multivitamin 1 tab PO DAILY 07/20/19 02/17/23 02/15/23 History resveratrol 250 mg capsule 250 mg PO DAILY 07/20/19 02/17/23 02/15/23 History finasteride 5 mg tablet 5 mg PO QDAY #90 tabs 04/24/22 02/17/23 02/15/23 Rx losartan 25 mg tablet 25 mg PO DAILY 04/24/22 02/17/2323 History atorvastatin 40 mg tablet 40 mg PO DAILY 02/17/23 02/17/23 02/15/23 History propafenone 300 mg tablet 300 mg PO TID 02/17/23 02/17/23 02/15/23 History rivaroxaban 20 mg tablet (Xarelto) 20 mg PO DAILY 02/17/23 02/17/23 02/15/23 History zinc gluconate 50 mg tablet 50 mg PO DAILY 02/17/23 02/17/23 02/15/23 History Allergies Allergy/AdvReac Type Severity Reaction Status Date / Time Penicillins Allergy Unknown Verified 04/24/22 07:59 phenylephrine Allergy Unknown Verified 04/24/22 07:59 Sulfa (Sulfonamide Allergy Unknown Verified 04/24/22 07:59 Antibiotics) PFSH Acute 2 PFSH: Medical History (Updated 02/17/23 @ 10:48 by Red Chapa MD) History of prostatitis Normal colonoscopy Hypertension Hyperlipidemia Elevated PSA Chronically elevated PSA with normal ADARSH's. 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 Negative biopsy and follow-up -3 T MRI. Surgical History Hx of transurethral resection of prostate H/O vasectomy Family History Mother , at age 78 Myocardial infarction (lateral wall) Father , at age 83 Emphysema lung Social History Smoking and tobacco/nicotine status: never used tobacco/nicotine Alcohol intake: never Marital status: Current occupational status: employed Vitals/I&O/Wt Last Vital Signs Temp 98.0 F 02/17/23 08:00 Pulse 113 H 02/17/23 08:00 Resp 23 H 02/17/23 08:00 BP 101/66 02/17/23 08:00 Pulse Ox 94 02/17/23 08:00 O2 Del Method Room Air 02/17/23 08:00 02/16/23 02/17/23 02/17/23 22:59 06:59 14:59 Intake Total 1051.583 / 1051.583 242 / 242 Balance 1051.583 / 1051.583 242 / 242 Weight last 48 hrs Weight 95.254 kg Weight 90.718 kg Physical Exam 2 Narrative: General: No acute distress, AO x3 HEENT: PERRLA, pupils bilaterally equal and reactive Chest: Normal vesicular breath sounds, no added sounds, equal good air entry bilaterally CVS: S1-S2 irregularly irregular, tachycardia, no gallops, no rubs Abdomen: Soft, nontender, no organomegaly, bowel sounds present Neuro: No focal deficits, no facial deformity, AO x3, power 5/5 in all limbs Data 02/17/23 05:07 02/17/23 05:07 A&P Assessment and plan (1) Atrial fibrillation with rapid ventricular response: Currently on Cardizem drip at 15. Continue with home dose of propafenone 300 mg 3 times a day. Start on Cardizem 60 mg every 6 hourly. Wean Cardizem drip keeping heart rate below 100. Normal saline at 75 cc/h. Continue with home dose of Xarelto. Check TSH, free T3 and free T4. Check echocardiogram once heart rate is below 100. (2) Hyperlipidemia: Continue with home dose of statin. Check lipid panel. (3) Hypertension: Goal blood pressure less than 140/90 mmHg. Hold off on home dose of losartan. Uptitrate as for goal blood pressures. Plan CODE STATUS: Full code Cardiac diet Xarelto will suffice for DVT prophylaxis Protonix for PUD prophylaxis. Attestations 2 Medical Necessity Statement*: Admit for more than 2 midnights for management of atrial fibrillation with rapid ventricular response on Cardizem drip Diagnoses Atrial fibrillation with rapid ventricular response I48.91 Hyperlipidemia E78.5 Hypertension I10
[2023-02-17 11:01] LABS: Procalcitonin 0.04 ng/mL (0-0.5); Thyroid Stimulating Hormone 1.86 uIU/mL (0.27-4.20); Vitamin B12 695 pg/mL (232-1245)
[2023-02-17] MEDS: sodium chloride 0.9% 1,000 ML 75 ML IV (11:11)
[2023-02-17 11:12] LABS: Iron 21 ug/dL (59-158); Percent Saturation 10.2 % (20-50); Total Iron Binding Capacity 204 mcg/dl; Unsaturated Iron Binding 183 ug/dL (112-347)
[2023-02-17] MEDS: dilTIAZem 60 mg Tablet PO (11:15)
[2023-02-17] MEDS: finasteride 5 mg Tablet PO (11:15)
[2023-02-17] MEDS: propafenone 150 mg Tablet 300 MG PO ×3 (11:15→20:59)
[2023-02-17 11:34] LABS: T3 Free 2.3 PG/ML (2.0-4.4)
[2023-02-17 11:48] LABS: Add Urine Microscopic? NO; Charge for UA Resulting for Rev
[2023-02-17 11:50] LABS: Urine Appearance Clear (CLEAR); Urine Color Yellow (Yellow); pH Urine 7 (5-7)
[2023-02-17 11:51] LABS: Bilirubin Urine Neg (Negative); Blood Urine Neg (Negative); Glucose Urine UA 2+ (Normal); Ketones Urine Negative (Negative); Leukocyte Esterase Urine Negative (Negative); Nitrate Urine Negative (Negative); Protein Urine Neg (Negative); Urobilinogen Urine Norm (Negative)
[2023-02-17 12:00] LABS: Free T4 Free Thyroxine 1.18 ng/dL (0.82-1.77)
[2023-02-17] MEDS: ipratropium 0.5 mg/2.5 mL Neb INHALATION (12:35)
--- NOTE | 2023-02-17 20:20 | PC.NURSE ---
Spoke with regarding patients HR in the 60s. ordered to change cardizem dose to 30mg Q8hr with first dose now and to give 9pm dose of rythmol as ordered.
[2023-02-17] MEDS: dilTIAZem 30 mg Tablet PO (20:59)
[2023-02-18] VITALS (12 sets, daily range): BP systolic 113–135; BP diastolic 58–73; PULSE 60–77; RESP 16–24; TEMP 36.9–37.4; O2SAT 85–95
[2023-02-18 04:01] LABS: Basophils % 0.4 %; Eosinophils # 0.1 10^3/uL (0.0-0.8); Eosinophils % 1.3 %; Hematocrit 31.1 % (37-53); Lymphocytes # 0.8 10^3/uL (0.8-4.8); Lymphocytes % 9.3 %; Mean Corpuscular HGB Conc 32.2 g/dL (30-55); Mean Corpuscular Hemoglobin 32.1 pg (27-33); Mean Corpuscular Volume 99.7 fl (82-101); Mean Platelet Volume 9.3 fL (7.4-10.4); Monocytes # 0.7 10^3/uL (0.2-0.9); Neutrophils # 6.73 10^3/uL (1.8-7.7); Neutrophils % 80.4 %; Nucleated Red Blood Cells % 0 %; Platelet Count 246 10^3/cmm (157-399); Red Blood Count 3.12 10^6/uL (3.85-5.65); Red Cell Distribution Width 13.2 % (12.1-15.1); White Blood Count 8.37 10^3/uL (3.29-11.43)
[2023-02-18 04:12] LABS: Estmated Average Glucose 146; Hemoglobin A1C 6.7 % (4.0-6.0)
[2023-02-18 04:17] LABS: Chol HDL Ratio 2.91 mg/dL (1.0-5.00); Cholesterol 96 mg/dL (0-200); HDL Cholesterol 33 mg/dL (60-100); LDL Cholesterol Calculated 52 mg/dL (50-129); Magnesium 2.2 mg/dL (1.7-2.3); Phosphorus 3.3 mg/dL (2.5-4.5); Triglycerides 53 mg/dL (0-150); VLDL Cholestrol Calculation 11 mg/dL (0-30)
[2023-02-18] MEDS: dilTIAZem 30 mg Tablet PO ×3 (04:32→20:24)
[2023-02-18 04:34] LABS: Alanine Aminotransferase 26 U/L (0-41); Albumin Level 3.2 g/dL (3.5-5.2); Alkaline Phosphatase 53 U/L (40-130); Anion Gap 15.2 (5-19); Aspartate Amino Transferase 12 U/L (0-40); Blood Urea Nitrogen 15 mg/dL (8-23); Calcium 8.1 mg/dL (8.5-10.5); Carbon Dioxide 23 mmol/L (22-29); Chloride 106 mmol/L (98-107); Globulin 2.9 g/dL (1.3-4.6); Glucose 133 mg/dL (65-115); Osmolality Calculated 293 mOsm/kg (285-295); Potassium 4.2 mmol/L (3.5-5.1); Sodium 140 mmol/L (136-145); Total Bilirubin 0.5 mg/dL (0.15-1.2); Total Protein 6.1 g/dL (6.6-8.7)
[2023-02-18 04:35] LABS: Folate Level 18.9 ng/mL (4.5-32.2)
[2023-02-18] MEDS: cefTRIAXone 1,000 MG in sodium chloride 0.9% (plus) 50 ML 100 MG IV (05:45)
[2023-02-18] MEDS: atorvastatin 40 mg Tablet PO (09:51)
[2023-02-18] MEDS: propafenone 150 mg Tablet 300 MG PO ×3 (09:51→20:24)
[2023-02-18] MEDS: zinc gluconate 50 mg Tablet PO (09:51)
[2023-02-18] MEDS: pantoprazole DR 40 mg Tablet PO (09:51)
[2023-02-18] MEDS: rivaroxaban 10 mg Tablet 20 MG PO (09:51)
[2023-02-18] MEDS: finasteride 5 mg Tablet PO (09:51)
[2023-02-18] MEDS: multivitamin therapeutic Tablet 1 TAB PO (09:51)
--- NOTE | 2023-02-18 11:54 | P.DS_ITS ---
Discharge Providers Date of Admission: 02/17/23 06:42 Date of Discharge: February 18, 2023 Attending Provider at Admission: Dorys Michaud MD Attending Provider at Discharge: Jordana Gonzalez MD Primary Care Provider: Myron Abbasi DO Diagnoses at Discharge Discharge Diagnosis (1) Atrial fibrillation with rapid ventricular response: Status: Acute (2) Hyperlipidemia: Status: Acute (3) Hypertension: Status: Acute Reason for Visit Reason for Visit: high heart rate Discharge Data Studies Completed and Pending Completed Studies During Hospitalization Category Date Time Status XR chest 1V portable [id number] Stat Exams 02/17/23 05:01 Completed CV. echo complete* [id number] Routine Ultrasound 02/17/23 10:14 Completed Pending at discharge Category Date Time Status Blood Cultures ([facility]) Routine Lab 02/17/23 06:17 Received Blood Cultures ([facility]) Routine Lab 02/17/23 06:21 Received MAG [Magnesium] AM LABS Lab 02/19/23 04:00 Ordered MAG [Magnesium] AM LABS Lab 02/20/23 04:00 Ordered PHOS [Phosphorus] AM LABS Lab 02/19/23 04:00 Ordered PHOS [Phosphorus] AM LABS Lab 02/20/23 04:00 Ordered Radiology Impressions Chest X-Ray 02/17/23 05:01 IMPRESSION: 1. Small dependent bibasilar atelectasis, left greater than right, with possible component of consolidation, especially in the left lower lobe. 2. Mild bilateral pulmonary venous congestion without marjan pulmonary edema. Laboratory Results WBC 8.37 10^3/uL (3.29-11.43) 02/18/23 03:08 RBC 3.12 10^6/uL (3.85-5.65) L 02/18/23 03:08 Hgb 10.00 g/dL (11.27-16.99) L 02/18/23 03:08 Hct 31.1 % (37-53) L 02/18/23 03:08 MCV 99.7 fl (82-101) 02/18/23 03:08 MCH 32.1 pg (27-33) 02/18/23 03:08 MCHC 32.2 g/dL (30-55) 02/18/23 03:08 RDW 13.2 % (12.1-15.1) 02/18/23 03:08 Plt Count 246 10^3/cmm (157-399) 02/18/23 03:08 MPV 9.3 fL (7.4-10.4) 02/18/23 03:08 Neut % (Auto) 80.4 % 02/18/23 03:08 Lymph % (Auto) 9.3 % 02/18/23 03:08 [place] % (Auto) 8.0 % 02/18/23 03:08 Eos % (Auto) 1.3 % 02/18/23 03:08 Baso % (Auto) 0.4 % 02/18/23 03:08 Neut # (Auto) 6.73 10^3/uL (1.8-7.7) 02/18/23 03:08 Lymph # (Auto) 0.8 10^3/uL (0.8-4.8) 02/18/23 03:08 [place] # (Auto) 0.7 10^3/uL (0.2-0.9) 02/18/23 03:08 Eos # (Auto) 0.1 10^3/uL (0.0-0.8) 02/18/23 03:08 Baso # (Auto) 0.0 10^3/uL (0.0-0.1) 02/18/23 03:08 Nucleated RBC % (auto) 0 % 02/18/23 03:08 Nucleated RBCs # 0.0 /100WBC 02/18/23 03:08 D-Dimer 0.85 ug/mLFEU (0-0.59) H 02/17/23 05:07 Sodium 140 mmol/L (136-145) 02/18/23 03:08 Potassium 4.2 mmol/L (3.5-5.1) 02/18/23 03:08 Chloride 106 mmol/L (98-107) 02/18/23 03:08 Carbon Dioxide 23 mmol/L (22-29) 02/18/23 03:08 Anion Gap 15.2 (5-19) 02/18/23 03:08 BUN 15 mg/dL (8-23) 02/18/23 03:08 Creatinine 1.0 mg/dL (0.7-1.2) 02/18/23 03:08 GFR Calculation Not Reportable 02/18/23 03:08 Glucose 133 mg/dL (65-115) H 02/18/23 03:08 Estimat Average Glucose 146 02/18/23 03:08 Hemoglobin A1c 6.7 % (4.0-6.0) H 02/18/23 03:08 Calculated Osmolality 293 mOsm/kg (285-295) 02/18/23 03:08 Calcium 8.1 mg/dL (8.5-10.5) L 02/18/23 03:08 Phosphorus 3.3 mg/dL (2.5-4.5) 02/18/23 03:08 Magnesium 2.2 mg/dL (1.7-2.3) 02/18/23 03:08 Iron 21 ug/dL (59-158) L 02/17/23 05:07 TIBC 204 mcg/dl 02/17/23 05:07 % Saturation 10.2 % (20-50) L 02/17/23 05:07 Unsat Iron Binding 183 ug/dL (112-347) 02/17/23 05:07 Total Bilirubin 0.5 mg/dL (0.15-1.2) 02/18/23 03:08 AST 12 U/L (0-40) 02/18/23 03:08 ALT 26 U/L (0-41) 02/18/23 03:08 Alkaline Phosphatase 53 U/L (40-130) 02/18/23 03:08 NT-Pro-B Natriuret Pep 1207 pg/mL (0-450) H 02/17/23 05:07 Total Protein 6.1 g/dL (6.6-8.7) L 02/18/23 03:08 Albumin 3.2 g/dL (3.5-5.2) L 02/18/23 03:08 Globulin 2.9 g/dL (1.3-4.6) 02/18/23 03:08 Triglycerides 53 mg/dL (0-150) 02/18/23 03:08 Cholesterol 96 mg/dL (0-200) 02/18/23 03:08 LDL Cholesterol, Calc 52 mg/dL (50-129) 02/18/23 03:08 Total VLDL Cholesterol 11 mg/dL (0-30) 02/18/23 03:08 HDL Cholesterol 33 mg/dL (60-100) L 02/18/23 03:08 Cholesterol/HDL Ratio 2.91 mg/dL (1.0-5.00) 02/18/23 03:08 Vitamin B12 695 pg/mL (232-1245) 02/17/23 05:07 Folate 18.9 ng/mL (4.5-32.2) 02/18/23 03:08 Procalcitonin 0.04 ng/mL (0-0.5) 02/17/23 05:07 TSH 1.86 uIU/mL (0.27-4.20) 02/17/23 05:07 Free T4 1.18 ng/dL (0.82-1.77) 02/17/23 05:07 Free T3 2.3 PG/ML (2.0-4.4) 02/17/23 05:07 Urine Color Yellow (Yellow) 02/17/23 11:08 Urine Appearance Clear (CLEAR) 02/17/23 11:08 Urine pH 7 (5-7) 02/17/23 11:08 Ur Specific [place] 1.010 (1.005-1.030) 02/17/23 11:08 Urine Protein Neg (Negative) 02/17/23 11:08 Urine Glucose (UA) 2+ (Normal) H 02/17/23 11:08 Urine Ketones Negative (Negative) 02/17/23 11:08 Urine Blood Neg (Negative) 02/17/23 11:08 Urine Nitrate Negative (Negative) 02/17/23 11:08 Urine Bilirubin Neg (Negative) 02/17/23 11:08 Urine Urobilinogen Norm mg/dL (Negative) 02/17/23 11:08 Ur Leukocyte Esterase Negative (Negative) 02/17/23 11:08 Influenza Type A Ag negative (Negative) 02/17/23 05:34 Influenza Type B Ag negative (Negative) 02/17/23 05:34 SARS-CoV-2 Ag (Rapid) negative (Negative) 02/17/23 05:34 Vitals Last Vital Signs Temp 98.5 F 02/18/23 08:00 Pulse 77 02/18/23 08:51 Resp 16 02/18/23 08:51 BP 135/64 02/18/23 08:00 Pulse Ox 95 02/18/23 08:51 O2 Del Method Nasal Cannula 02/18/23 08:51 O2 Flow Rate 3 02/18/23 08:51 Discharge Plan Discharge Patient Disposition: Home Condition: Stable Prescriptions: No Action diltiazem HCl [Cartia XT] 120 mg capsule,extended release 24hr 120 mg PO DAILY multivitamin Tablet 1 tab PO DAILY coenzyme Q10 [CoQ-10] 100 mg capsule 200 mg PO DAILY Glucosamine Chondroitin 550-30-1 mg capsule 1 cap PO DAILY magnesium gluconate [Mag-G] 27 mg magnesium (500 mg) tablet 27 mg PO DAILY resveratrol 250 mg capsule 250 mg PO DAILY cholecalciferol (vitamin D3) 50 mcg (2,000 unit) capsule 50 mcg PO DAILY losartan 25 mg tablet 25 mg PO DAILY finasteride 5 mg tablet 5 mg PO QDAY Qty: 90 3RF atorvastatin 40 mg tablet 40 mg PO DAILY propafenone 300 mg tablet 300 mg PO TID zinc gluconate 50 mg Tablet 50 mg PO DAILY Xarelto 20 mg tablet 20 mg PO DAILY Referrals: Myron Abbasi DO [Primary Care Provider] - Patient Instructions: Opioid Safety Coding Level of Care Code Acute Code for g Fwd Diagnoses Atrial fibrillation with rapid ventricular response I48.91 Hyperlipidemia E78.5 Hypertension I10
--- NOTE | 2023-02-18 11:57 | XRR_ITS ---
PROCEDURE INFORMATION: Exam: XR Chest Exam date and time: 02/18/2023 1:06 PM Age: 77 years old Clinical indication: Condition or disease; Other: Concern forpneumonia; Additional info: R/O pneumonia TECHNIQUE: Imaging protocol: Radiologic exam of the chest. Views: 1 view. COMPARISON: CR (CHEST, ) 02/17/2023 5:07 AM FINDINGS: Lungs: Focal infiltrate is again seen in the left lateral lung base. Questionable developing stringy infiltrate in the right upper lung field. Pleural spaces: Unremarkable. No pleural effusion. No pneumothorax. Heart/Mediastinum: Unremarkable. No cardiomegaly. Bones/joints: Unremarkable. XR/XR chest 1V portable [id number] IMPRESSION: 1. Focal infiltrate is again seen in the left lateral lung base. 2. Questionable developing stringy infiltrate in the right upper lung field.
[2023-02-18 12:47] LABS: Procalcitonin 0.04 ng/mL (0-0.5)
[2023-02-18] MEDS: azithromycin 500 MG in sodium chloride 0.9% 250 ML 250 MG IV (13:12)
--- NOTE | 2023-02-18 13:26 | P.PN_ITS ---
Subjective 2 Subjective: Saturating 89% on room air. No conversational dyspnea however when talks saturation does drop down to 88. Home oxygen evaluation has been ordered at this time. Not on any oxygen at home previously. Currently in normal sinus rhythm. He is supposed to have an ablation done for atrial fibrillation this month in [facility] [place]. Sitting comfortably in bed at this time. Says he has been having chest congestion for the last few weeks. Does not feel short of breath. Vitals/I&O/Wt Last Vital Signs Temp 98.5 F 02/18/23 08:00 Pulse 72 02/18/23 12:00 Resp 19 H 02/18/23 12:00 BP 126/58 02/18/23 12:00 Pulse Ox 90 02/18/23 12:00 O2 Del Method Room Air 02/18/23 12:00 O2 Flow Rate 3 02/18/23 08:51 02/17/23 02/18/23 02/18/23 22:59 06:59 14:59 Intake Total 1227.5 / 1770.667 170 / 1940.667 440 / 440 Output Total 250 / 530 Balance 1227.5 / 1490.667 -80 / 1410.667 440 / 440 Weight last 48 hrs Weight 93.44 kg Weight 95.254 kg Weight 90.718 kg Physical Exam 2 Narrative: General: No acute distress, AO x3 HEENT: PERRLA, pupils bilaterally equal and reactive Chest: Normal vesicular breath sounds, no added sounds, equal good air entry bilaterally CVS: S1-S2 irregularly irregular, tachycardia, no gallops, no rubs Abdomen: Soft, nontender, no organomegaly, bowel sounds present Neuro: No focal deficits, no facial deformity, AO x3 Data 02/18/23 03:08 02/18/23 03:08 A&P Assessment and plan (1) Atrial fibrillation with rapid ventricular response: Stop Cardizem drip. Continue on Cardizem 30 every 6. Continue propafenone 300 3 times daily. Continue normal saline 75 cc/h. Continue home dose of Xarelto. Check D-dimer Check TSH, free T3 and free T4. Patient has converted to normal sinus rhythm. Continue above home medications. He will go for ablation as an outpatient after discharge in [place]. Will set up with a event monitor at discharge. Briefly curbside discussed with cardiology over the phone. Echo shows mild mitral regurgitation. (2) Hyperlipidemia: Continue with home dose of statin. Check lipid panel. (3) Hypertension: Goal blood pressure less than 140/90 mmHg. Hold off on home dose of losartan. Uptitrate as for goal blood pressures. (4) Hypoxia: #Community-acquired pneumonia Check home oxygen evaluation. Patient 8889% on room air and drops when he talks. Patient requiring 3 L nasal cannula with saturating 9495%. Chest x-ray reviewed. Focal infiltrate left lateral lung base. Questionable developing stringy infiltrate in right upper lung field. Continue on ceftriaxone IV and azithromycin 500 daily Check respiratory viral panel Check procalcitonin Check bacterial antigen. Check sputum culture and Gram stain DuoNeb every 6 hours as needed. Patient denies smoking. Will check As she was planning to discharge patient home today however will continue hospitalization for IV antibiotics today. (5) Pneumonia: Plan CODE STATUS: Full code Cardiac diet Xarelto will suffice for DVT prophylaxis Protonix for PUD prophylaxis. Attestations 2 Medical Necessity Statement*: Requires continued hospitalization for acute hypoxia requiring oxygen secondary to pneumonia. Diagnoses Atrial fibrillation with rapid ventricular response I48.91 Hyperlipidemia E78.5 Hypertension I10 Hypoxia R09.02 Pneumonia J18.9
--- NOTE | 2023-02-18 14:13 | PC.NURSE ---
Provider is notified that there is a shortage of PCR tests and provider decided that we can hold off on collecting the respiratory panel PCR.
[2023-02-18 14:39] LABS: D Dimer 1.83 ug/mLFEU (0-0.59)
--- NOTE | 2023-02-18 16:27 | CTR_ITS ---
PROCEDURE INFORMATION: Exam: CTA Chest With Contrast Exam date and time: 02/18/2023 7:21 PM Age: 77 years old Clinical indication: Abnormal findings; Abnormal diagnostic tests; Elevated d-dimer; Cough and shortness of breath; Patient HX: Cough with SOB. Dimer 1.83. History of afib. ; Additional info: R/O pe TECHNIQUE: Imaging protocol: Computed tomographic angiography of the chest with contrast. Exam focused on the arteries. 3D rendering (Not supervised by radiologist): MIP and/or 3D reconstructed images were created by the technologist. Radiation optimization: All CT scans at this facility use at least one of these dose optimization techniques: automated exposure control; mA and/or kV adjustment per patient size (includes targeted exams where dose is matched to clinical indication); or iterative reconstruction. Contrast material: OMNI 350; Contrast volume: 100 ml; Contrast route: INTRAVENOUS (IV); REPORTING DATA: Count of CT and Cardiac NM exams in prior 12 months: This patient has received 0 known CTs and 0 known cardiac nuclear medicine studies in the 12 months prior to the current study. COMPARISON: CR (CHEST, ) 02/18/2023 1:06 PM RADIATION DOSE METRICS: Total DLP (mGy-cm): 472.7 FINDINGS: Pulmonary arteries: No pulmonary embolus. The main pulmonary artery is enlarged measuring up to 3.2 cm which can be seen the setting of pulmonary artery hypertension. Aorta: Unremarkable. No aortic aneurysm. No aortic dissection. Lungs: Smooth septal markings throughout both lungs with peribronchial wall thickening. Ground-glass opacities throughout both lungs with a dependent distribution. Pleural spaces: Moderate bilateral pleural effusions with atelectatic changes in the lung bases. Heart: Unremarkable. No cardiomegaly. No pericardial effusion. Lymph nodes: Unremarkable. No enlarged lymph nodes. Bones/joints: Unremarkable. No acute fracture. Soft tissues: Unremarkable. CT/CT angio chest PE protcl [id number] IMPRESSION: 1. No pulmonary embolus. 2. Bilateral pleural effusions with smooth septal markings throughout both lungs and ground-glass opacities in a dependent distribution which can be seen in the setting CHF exacerbation. 3. Atelectatic changes in the lung bases with no focal consolidation.
--- NOTE | 2023-02-18 19:03 | PC.NURSE ---
Spoke with regarding patient needing home cpap unit but does not have it here in hospital. said order CPAP and RT to use our unit to home settings.
[2023-02-18] MEDS: iohexol 350 mg/mL 500 mL Btl (per mL) IV (19:26)
[2023-02-19] VITALS (10 sets, daily range): BP systolic 111–163; BP diastolic 72–95; PULSE 59–133; RESP 15–26; TEMP 36.6; O2SAT 92–95
[2023-02-19] MEDS: dilTIAZem 30 mg Tablet PO (03:58)
[2023-02-19 05:18] LABS: Basophils % 0.6 %; Eosinophils # 0.1 10^3/uL (0.0-0.8); Eosinophils % 1.3 %; Hematocrit 32.6 % (37-53); Lymphocytes # 0.8 10^3/uL (0.8-4.8); Lymphocytes % 12.3 %; Mean Corpuscular HGB Conc 30.7 g/dL (30-55); Mean Corpuscular Hemoglobin 32.1 pg (27-33); Mean Corpuscular Volume 104.5 fl (82-101); Mean Platelet Volume 9.3 fL (7.4-10.4); Monocytes # 0.7 10^3/uL (0.2-0.9); Monocytes % 10.6 %; Neutrophils # 4.59 10^3/uL (1.8-7.7); Neutrophils % 74.6 %; Nucleated Red Blood Cells % 0 %; Platelet Count 224 10^3/cmm (157-399); Red Blood Count 3.12 10^6/uL (3.85-5.65); White Blood Count 6.16 10^3/uL (3.29-11.43)
[2023-02-19] MEDS: cefTRIAXone 1,000 MG in sodium chloride 0.9% (plus) 50 ML 100 MG IV (05:39)
[2023-02-19 05:48] LABS: Blood Urea Nitrogen 13 mg/dL (8-23); Calcium 8.4 mg/dL (8.5-10.5); Carbon Dioxide 22 mmol/L (22-29); Chloride 104 mmol/L (98-107); Glucose 144 mg/dL (65-115); Magnesium 2.3 mg/dL (1.7-2.3); Osmolality Calculated 287 mOsm/kg (285-295); Phosphorus 3.7 mg/dL (2.5-4.5); Sodium 137 mmol/L (136-145)
[2023-02-19 05:50] LABS: Anion Gap 15.4 (5-19); Potassium 4.4 mmol/L (3.5-5.1)
--- NOTE | 2023-02-19 06:56 | PC.NURSE ---
Messaged regarding patient went back into afib at 6:30am. Hr 90-110s. No new orders at this time.
--- NOTE | 2023-02-19 08:35 | P.CONIM_ITS ---
Providers/Reason For Consult 2 Consulting Physician/Specialty*: Lawrence Camargo MD/ Cardiology Reason for Consult*: Atrial fibrillation Requesting Physician: Dr Gonzalez Attending Physician: Jordana Gonzalez MD Primary Care Provider: Myron Abbasi DO History of Present Illness History of Present Illness Jan Beckwith is a 77 year old male with past medical history of atrial fibrillation who was recently started on propafenone 300 mg 3 times daily has had multiple ER visits with A-fib with RVR. Cardiology was consulted as he again went into A-fib with RVR this morning. He sees electrophysiology and [place]. He is currently being treated for community-acquired pneumonia as well. Has palpitations. Also shortness of breath. Review of Systems 2 Const: Denies: fever(s), chills, body aches or change in appetite ENMT: Denies: throat pain or dental pain Card: Reports: palpitations; Denies: chest pain Resp: Reports: dyspnea and non-productive cough GI: Denies: abdominal pain, nausea, vomiting or diarrhea Musc: Denies: neck pain or back pain Skin/Breast: Denies: rash Medications/Allergies Home Medications Medication Instructions Recorded Confirmed Last Taken Type cholecalciferol (vitamin D3) 50 50 mcg PO DAILY 07/20/19 02/17/23 02/15/23 History mcg (2,000 unit) capsule coenzyme Q10 100 mg capsule 200 mg PO DAILY 07/20/19 02/17/23 02/15/23 History (CoQ-10) diltiazem HCl 120 mg 120 mg PO DAILY 07/20/19 02/17/23 02/15/23 History capsule,extended release 24 hr (Cartia XT) glucosamine sulf dipot 1 cap PO DAILY 07/20/19 02/17/23 02/15/23 History chlr,msm,chond 550 mg-C 30 mg-sunny 1 mg capsule (Glucosamine Chondroitin) magnesium gluconate 27 mg 27 mg PO DAILY 07/20/19 02/17/23 02/15/23 History magnesium (500 mg) tablet (Mag-G) multivitamin 1 tab PO DAILY 07/20/19 02/17/23 02/15/23 History resveratrol 250 mg capsule 250 mg PO DAILY 07/20/19 02/17/23 02/15/23 History finasteride 5 mg tablet 5 mg PO QDAY #90 tabs 04/24/22 02/17/23 02/15/23 Rx losartan 25 mg tablet 25 mg PO DAILY 04/24/22 02/17/23 02/15/23 History atorvastatin 40 mg tablet 40 mg PO DAILY 02/17/23 02/17/23 02/15/23 History propafenone 300 mg tablet 300 mg PO TID 02/17/23 02/17/23 02/15/23 History rivaroxaban 20 mg tablet (Xarelto) 20 mg PO DAILY 02/17/23 02/17/23 02/15/23 History zinc gluconate 50 mg tablet 50 mg PO DAILY 02/17/23 02/17/23 02/15/23 History Allergies Allergy/AdvReac Type Severity Reaction Status Date / Time Penicillins Allergy Unknown Verified 04/24/22 07:59 phenylephrine Allergy Unknown Verified 04/24/22 07:59 Sulfa (Sulfonamide Allergy Unknown Verified 04/24/22 07:59 Antibiotics) Current Medications Generic Name Dose Route Start Last Admin Trade Name Freq PRN Reason Stop Dose Admin Atorvastatin Calcium 40 mg 02/18/23 09:00 02/18/23 09:51 Atorvastatin 40 Mg Tablet PO 40 mg DAILY JACQUELINE Administration Diltiazem HCl 30 mg 02/17/23 20:19 02/19/23 03:58 Diltiazem 30 Mg Tablet PO 30 mg Q8H JACQUELINE Administration Finasteride 5 mg 02/17/23 10:15 02/18/23 09:51 Finasteride 5 Mg Tablet PO 5 mg DAILY JACQUELINE Administration Diltiazem HCl 100 mg/ Sodium 100 mls @ 0 mls/hr 02/17/23 06:00 02/17/23 19:20 Chloride IV Infused .Q0M JACQUELINE Titration Protocol Per Protocol Ceftriaxone Sodium 1,000 mg/ 50 mls @ 100 mls/hr 02/18/23 06:30 02/19/23 06:10 Sodium Chloride IV Infused Q24H JACQUELINE Infusion Protocol Ipratropium Point Clear 0.5 mg 02/17/23 11:05 02/17/23 12:35 Ipratropium 0.5 Mg/2.5 Ml Neb INHALATION 0.5 mg TID.RESP PRN Administration SHORTNESS OF BREATH Multivitamins Therapeutic 1 tab 02/18/23 09:00 02/18/23 09:51 Multivitamin Therapeutic Tablet PO 1 tab DAILY JACQUELINE Administration Pantoprazole Sodium 40 mg 02/17/23 09:00 02/18/23 09:[address] 40 Mg Tablet PO 40 mg DAILY JACQUELINE Administration Propafenone HCl 300 mg 02/17/23 10:15 02/18/23 20:24 Propafenone 150 Mg Tablet PO 300 mg TID JACQUELINE Administration Rivaroxaban 20 mg 02/18/23 09:00 02/18/23 09:51 Rivaroxaban 10 Mg Tablet PO 20 mg DAILY JACQUELINE Administration Zinc Gluconate 50 mg 02/18/23 09:00 02/18/23 09:51 Zinc Gluconate 50 Mg Tablet PO 50 mg DAILY JACQUELINE Administration PFSH Acute 2 PFSH: Medical History History of prostatitis Normal colonoscopy Hypertension Hyperlipidemia Elevated PSA Chronically elevated PSA with normal ADARSH's. 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 Negative biopsy and follow-up -3 T MRI. Surgical History Hx of transurethral resection of prostate H/O vasectomy Family History Mother , at age 78 Myocardial infarction (lateral wall) Father , at age 83 Emphysema lung Social History Smoking and tobacco/nicotine status: never used tobacco/nicotine Alcohol intake: never Marital status: Current occupational status: employed Vitals/I&O/Wt Last Vital Signs Temp 97.8 F 02/19/23 08:00 Pulse 115 H 02/19/23 08:00 Resp 18 02/19/23 08:00 BP 163/90 02/19/23 08:00 Pulse Ox 94 02/19/23 08:00 O2 Del Method Room Air 02/19/23 08:00 O2 Flow Rate 3 02/18/23 08:51 02/18/23 02/19/23 02/19/23 22:59 06:59 14:59 Intake Total 940 / 1630 225 / 1855 Output Total 0 / 0 Balance 940 / 1630 225 / 1855 Weight last 48 hrs Weight 209 lb 1.6 oz Weight 110 lb 9.6 oz Weight 206 lb Physical Exam 2 Narrative: GENERAL: Patient is alert, awake and oriented x3. [] NECK: No jugular vein distension. [] HEENT: No cyanosis. No icterus. No pallor. [] HEART: Irregularly irregular, tachycardic. LUNGS: Diminished air entry. CENTRAL NERVOUS SYSTEM: Grossly nonfocal. [] EXTREMITIES: Lower extremities with no edema Data 02/19/23 03:55 02/19/23 03:55 Micro: Microbiology 02/18/23 15:24 Bacterial Antigens - Final Urine,Voided 02/18/23 15:24 Legionella Urinary Antigen - Final Urine,Voided A&P Assessment and plan (1) Atrial fibrillation with rapid ventricular response: (2) Hypertension: (3) Hyperlipidemia: Plan Patient is currently being treated for atrial fibrillation with RVR. He also has community-acquired pneumonia. Management per medical team. He has been on propafenone for over a month. Multiple ER visits secondary to AF with RVR. I have recommended him to switch to amiodarone. However he sees EP team in [place] and wants only them to change the rhythm medication. I have given him the option of being transferred to their service as he is not comfortable with switching medications If blood pressure is stable. For rate control can start Cardizem drip. Continue anticoagulation. Thank you for involving us with care of this patient. Please call with questions. Consult Attestations 2 Medical Necessity Statement: Care expected to cross 2 midnights. Coding Level of Care Code Acute Code for [facility] Fwd Diagnoses Atrial fibrillation with rapid ventricular response I48.91 Hypertension I10 Hyperlipidemia E78.5
[2023-02-19] MEDS: zinc gluconate 50 mg Tablet PO (09:17)
[2023-02-19] MEDS: FUROsemide 10 mg/mL SDV 4mL 40 MG IVP (09:17)
[2023-02-19] MEDS: multivitamin therapeutic Tablet 1 TAB PO (09:17)
[2023-02-19] MEDS: rivaroxaban 10 mg Tablet 20 MG PO (09:18)
[2023-02-19] MEDS: atorvastatin 40 mg Tablet PO (09:18)
[2023-02-19] MEDS: propafenone 150 mg Tablet 300 MG PO ×3 (09:18→20:50)
[2023-02-19] MEDS: finasteride 5 mg Tablet PO (09:18)
[2023-02-19] MEDS: azithromycin 250 mg Tablet 500 MG PO (09:18)
[2023-02-19] MEDS: pantoprazole DR 40 mg Tablet PO (09:18)
--- NOTE | 2023-02-19 13:01 | PC.NURSE ---
notified by hospitalist that senior php developer told her to start pt back on cardizem drip. notified senior php developer, BP-99/66, HR-100s to 120s, received oral rhythmol at 9am and po cardizem at 4 am. clarified by senior php developer when to start his cardizem drip and her replied back that we can start pt on cardizem drip once his systolic bp is above 110. BP cyled q 15 mins. notified primary nurse Augustina.
[2023-02-19] MEDS: dilTIAZem 100 MG in sodium chloride 0.9% (add-van) 100 ML IV (13:14)
--- NOTE | 2023-02-19 14:21 | P.TS_ITS ---
Transfer Summary Providers Date of Admission: 02/17/23 06:42 Date of Discharge/Transfer: 02/19/23 Attending Provider at Admission: Dorys Michaud MD Attending Provider at Transfer: Jordana Gonzalez MD Primary Care Provider: Myron Abbasi DO Transfer Plans: Anticipated date of transfer: 02/19/23 . Diagnoses at Discharge Discharge Diagnosis (1) Atrial fibrillation with rapid ventricular response: Status: Acute (2) Hypertension: Status: Acute (3) Hyperlipidemia: Status: Acute Reason for Visit Reason for Visit high heart rate Brief History: As per Dr. Arroyo Jan Beckwith is a 77 year old male with past medical history of atrial fibrillation, hyperlipidemia, hypertension, obstructive sleep apnea on CPAP who is chronically on 225 mg of extended release propafenone for A-fib along with Xarelto for anticoagulation presented to the ER because of of rapid heart rate which he felt at around 3 AM along with difficulty in breathing. As per the patient he has had up to 3-4 episodes within the last 1 week when he had increased heart rate associated with shortness of breath for which his manager manufacturing recently on changed him to propafenone 300 mg 3 times a day and added Cardizem 120 mg oral daily which he started taking Saturday. Today is Saturday. Symptoms are not associated with chest pain, dizziness, nausea or vomiting. Currently he is on 15 of Cardizem Drip. Denies any other changes recently on medications. Also gives history of sleep apnea for which he uses CPAP at 10 nightly. Hospital Course Hospital Course Patient admitted for A-fib with RVR placed on Cardizem drip initially. He converted to sinus rhythm on his home dose of Cardizem and propafenone 303 times daily. Continue on Xarelto. He does require oxygen during nighttime and has had chest congestion lately. Diagnosed with community-acquired pneumonia during hospital stay and being treated with IV antibiotics ceftriaxone and azithromycin for that. COVID, flu negative. Sputum culture Gram stain negative to date. Bacterial antigen Legionella, Streptococcus are pending at this time. He is on room air during daytime but requires 2 L at nighttime. On CPAP at night. Echo was performed which shows mild mitral regurgitation otherwise unremarkable. Patient is supposed to go for ablation as an outpatient in [place]. On day of discharge patient again had A-fib with RVR. Cardiology was consulted who recommended amiodarone. Patient would like to discuss with his assistant property manager in [place] before agreeing to medications. He reached out to EP nurse. After discussion with patient and manager manufacturing it was decided to transfer patient to [facility] for EP consult and potential ablation. Patient would like to decline the initiation of amiodarone at this time. We will restart Cardizem drip and transfer patient to [place] in stable condition. Case was discussed with Dr. choe has accepted this patient for transfer. All questions answered and family updated at bedside. Physical Exam Narrative: General: No acute distress, AO x3 HEENT: PERRLA, pupils bilaterally equal and reactive Chest: Normal vesicular breath sounds, no added sounds, equal good air entry bilaterally CVS: S1-S2 irregularly irregular, tachycardia, no gallops, no rubs Abdomen: Soft, nontender, no organomegaly, bowel sounds present Neuro: No focal deficits, no facial deformity, AO x3 TS Data Studies Completed and Pending Pending at discharge Category Date Time Status Blood Cultures ([facility]) Routine Lab 02/17/23 06:17 Received Blood Cultures ([facility]) Routine Lab 02/17/23 06:21 Received MAG [Magnesium] AM LABS Lab 02/20/23 04:00 Ordered PHOS [Phosphorus] AM LABS Lab 02/20/23 04:00 Ordered Respiratory Panel 2 Stat Lab 02/18/23 12:16 Uncollected Sputum Culture and Gram Stain Stat Lab 02/19/23 06:25 Results Completed Studies During Hospitalization Category Date Time Status CTA PE [CT angio chest PE protcl [id number]] Stat Cat Scan 02/18/23 16:27 Completed XR chest 1V portable [id number] Stat Exams 02/18/23 11:57 Completed XR chest 1V portable [id number] Stat Exams 02/17/23 05:01 Completed CV. echo complete* [id number] Routine Ultrasound 02/17/23 10:14 Completed Laboratory Last Values WBC 6.16 10^3/uL (3.29-11.43) 02/19/23 03:55 RBC 3.12 10^6/uL (3.85-5.65) L 02/19/23 03:55 Hgb 10.00 g/dL (11.27-16.99) L 02/19/23 03:55 Hct 32.6 % (37-53) L 02/19/23 03:55 MCV 104.5 fl (82-101) H 02/19/23 03:55 MCH 32.1 pg (27-33) 02/19/23 03:55 MCHC 30.7 g/dL (30-55) 02/19/23 03:55 RDW 13.0 % (12.1-15.1) 02/19/23 03:55 Plt Count 224 10^3/cmm (157-399) 02/19/23 03:55 MPV 9.3 fL (7.4-10.4) 02/19/23 03:55 Neut % (Auto) 74.6 % 02/19/23 03:55 Lymph % (Auto) 12.3 % 02/19/23 03:55 [place] % (Auto) 10.6 % 02/19/23 03:55 Eos % (Auto) 1.3 % 02/19/23 03:55 Baso % (Auto) 0.6 % 02/19/23 03:55 Neut # (Auto) 4.59 10^3/uL (1.8-7.7) 02/19/23 03:55 Lymph # (Auto) 0.8 10^3/uL (0.8-4.8) 02/19/23 03:55 [place] # (Auto) 0.7 10^3/uL (0.2-0.9) 02/19/23 03:55 Eos # (Auto) 0.1 10^3/uL (0.0-0.8) 02/19/23 03:55 Baso # (Auto) 0.0 10^3/uL (0.0-0.1) 02/19/23 03:55 Nucleated RBC % (auto) 0 % 02/19/23 03:55 Nucleated RBCs # 0.0 /100WBC 02/19/23 03:55 D-Dimer 1.83 ug/mLFEU (0-0.59) H 02/18/23 14:10 Sodium 137 mmol/L (136-145) 02/19/23 03:55 Potassium 4.4 mmol/L (3.5-5.1) 02/19/23 03:55 Chloride 104 mmol/L (98-107) 02/19/23 03:55 Carbon Dioxide 22 mmol/L (22-29) 02/19/23 03:55 Anion Gap 15.4 (5-19) 02/19/23 03:55 BUN 13 mg/dL (8-23) 02/19/23 03:55 Creatinine 0.9 mg/dL (0.7-1.2) 02/19/23 03:55 GFR Calculation Not Reportable 02/19/23 03:55 Glucose 144 mg/dL (65-115) H 02/19/23 03:55 Estimat Average Glucose 146 02/18/23 03:08 Hemoglobin A1c 6.7 % (4.0-6.0) H 02/18/23 03:08 Calculated Osmolality 287 mOsm/kg (285-295) 02/19/23 03:55 Calcium 8.4 mg/dL (8.5-10.5) L 02/19/23 03:55 Phosphorus 3.7 mg/dL (2.5-4.5) 02/19/23 03:55 Magnesium 2.3 mg/dL (1.7-2.3) 02/19/23 03:55 Iron 21 ug/dL (59-158) L 02/17/23 05:07 TIBC 204 mcg/dl 02/17/23 05:07 % Saturation 10.2 % (20-50) L 02/17/23 05:07 Unsat Iron Binding 183 ug/dL (112-347) 02/17/23 05:07 Total Bilirubin 0.5 mg/dL (0.15-1.2) 02/18/23 03:08 AST 12 U/L (0-40) 02/18/23 03:08 ALT 26 U/L (0-41) 02/18/23 03:08 Alkaline Phosphatase 53 U/L (40-130) 02/18/23 03:08 NT-Pro-B Natriuret Pep 1207 pg/mL (0-450) H 02/17/23 05:07 Total Protein 6.1 g/dL (6.6-8.7) L 02/18/23 03:08 Albumin 3.2 g/dL (3.5-5.2) L 02/18/23 03:08 Globulin 2.9 g/dL (1.3-4.6) 02/18/23 03:08 Triglycerides 53 mg/dL (0-150) 02/18/23 03:08 Cholesterol 96 mg/dL (0-200) 02/18/23 03:08 LDL Cholesterol, Calc 52 mg/dL (50-129) 02/18/23 03:08 Total VLDL Cholesterol 11 mg/dL (0-30) 02/18/23 03:08 HDL Cholesterol 33 mg/dL (60-100) L 02/18/23 03:08 Cholesterol/HDL Ratio 2.91 mg/dL (1.0-5.00) 02/18/23 03:08 Vitamin B12 695 pg/mL (232-1245) 02/17/23 05:07 Folate 18.9 ng/mL (4.5-32.2) 02/18/23 03:08 Procalcitonin 0.04 ng/mL (0-0.5) 02/18/23 03:08 TSH 1.86 uIU/mL (0.27-4.20) 02/17/23 05:07 Free T4 1.18 ng/dL (0.82-1.77) 02/17/23 05:07 Free T3 2.3 PG/ML (2.0-4.4) 02/17/23 05:07 Urine Color Yellow (Yellow) 02/17/23 11:08 Urine Appearance Clear (CLEAR) 02/17/23 11:08 Urine pH 7 (5-7) 02/17/23 11:08 Ur Specific [place] 1.010 (1.005-1.030) 02/17/23 11:08 Urine Protein Neg (Negative) 02/17/23 11:08 Urine Glucose (UA) 2+ (Normal) H 02/17/23 11:08 Urine Ketones Negative (Negative) 02/17/23 11:08 Urine Blood Neg (Negative) 02/17/23 11:08 Urine Nitrate Negative (Negative) 02/17/23 11:08 Urine Bilirubin Neg (Negative) 02/17/23 11:08 Urine Urobilinogen Norm mg/dL (Negative) 02/17/23 11:08 Ur Leukocyte Esterase Negative (Negative) 02/17/23 11:08 Influenza Type A Ag negative (Negative) 02/17/23 05:34 Influenza Type B Ag negative (Negative) 02/17/23 05:34 SARS-CoV-2 Ag (Rapid) negative (Negative) 02/17/23 05:34 Radiology Impressions Chest X-Ray 02/18/23 11:57 IMPRESSION: 1. Focal infiltrate is again seen in the left lateral lung base. 2. Questionable developing stringy infiltrate in the right upper lung field. Chest CTA 02/18/23 16:27 IMPRESSION: 1. No pulmonary embolus. 2. Bilateral pleural effusions with smooth septal markings throughout both lungs and ground-glass opacities in a dependent distribution which can be seen in the setting CHF exacerbation. 3. Atelectatic changes in the lung bases with no focal consolidation. Recent Clincial Data Last Vital Signs Temp 97.8 F 02/19/23 08:00 Pulse 110 H 02/19/23 12:00 Resp 15 02/19/23 12:00 BP 111/78 02/19/23 12:00 Pulse Ox 95 02/19/23 12:00 O2 Del Method Room Air 02/19/23 12:00 O2 Flow Rate 3 02/18/23 08:51 Vital Signs Temp Pulse Resp BP Pulse Ox O2 Del Method 02/19/23 12:00 110 H 15 111/78 95 Room Air 02/19/23 09:10 128 H 20 H 94 Room Air 02/19/23 08:00 97.8 F 115 H 18 163/90 94 Room Air 02/19/23 05:25 59 L 02/19/23 03:59 64 20 H 138/72 93 CPAP Intake & Output/Weight 02/17/23 02/18/23 02/19/23 02/20/23 06:59 06:59 06:59 06:59 Intake Total 1051.583 / 7254.866 3262.667 / 1130.526 8388 / 1855 340 / 340 Output Total 530 / 530 0 / 0 1000 / 1000 Balance 1051.583 / 7246.152 8761.667 / 4925.520 6327 / 1855 -660 / -660 Weight 90.718 kg 93.44 kg 94.846 kg Vitals Last Vital Signs Temp 97.8 F 02/19/23 08:00 Pulse 110 H 02/19/23 12:00 Resp 15 02/19/23 12:00 BP 111/78 02/19/23 12:00 Pulse Ox 95 02/19/23 12:00 O2 Del Method Room Air 02/19/23 12:00 O2 Flow Rate 3 02/18/23 08:51 TS Medications Medications Acetaminophen (Acetaminophen 325 Mg Tablet) 650 mg PO Q6H PRN PRN Reason: Mild/Mod Pain Or Temp >/= 101 Albuterol/Ipratropium (Ipratropium-Albuterol 3 Ml Neb) 3 ml INHALATION Q6H PRN PRN Reason: SHORTNESS OF BREATH Atorvastatin Calcium (Atorvastatin 40 Mg Tablet) 40 mg PO DAILY [facility] Last Admin: 02/19/23 09:18 Dose: 40 mg Azithromycin (Azithromycin 250 Mg Tablet) 500 mg PO DAILY JACQUELINE; Protocol Last Admin: 02/19/23 09:18 Dose: 500 mg Bisacodyl (Bisacodyl 5 Mg Tablet) 10 mg PO DAILY PRN; Protocol PRN Reason: Constipation (see protocol) Diltiazem HCl (Diltiazem 30 Mg Tablet) 30 mg PO Q8H [facility] Last Admin: 02/19/23 03:58 Dose: 30 mg Finasteride (Finasteride 5 Mg Tablet) 5 mg PO DAILY [facility] Last Admin: 02/19/23 09:18 Dose: 5 mg Ceftriaxone Sodium 1,000 mg/ (Sodium Chloride) 50 mls @ 100 mls/hr IV Q24H JACQUELINE; Protocol Last Infusion: 02/19/23 06:10 Dose: Infused Diltiazem HCl 100 mg/ Sodium (Chloride) 100 mls @ 0 mls/hr IV .Q0M [facility]; Protocol Last Admin: 02/19/23 13:14 Dose: 5 mg/hr, 5 mls/hr Ipratropium [place] (Ipratropium 0.5 Mg/2.5 Ml Neb) 0.5 mg INHALATION TID.RESP PRN PRN Reason: SHORTNESS OF BREATH Last Admin: 02/17/23 12:35 Dose: 0.5 mg Lactulose (Lactulose Oral Liq 20 Gm/30 Ml Udc) 10 gm PO DAILY PRN; Protocol PRN Reason: Constipation (see protocol) Magnesium Hydroxide (Magnesium Hydroxide 30 Ml Udc) 30 ml PO DAILY PRN; Protocol PRN Reason: Constipation (see protocol) Morphine Sulfate (Morphine 4 Mg/Ml Sdv 1 Ml) 2 mg IVP Q4H PRN PRN Reason: SEVERE PAIN Multivitamins Therapeutic (Multivitamin Therapeutic Tablet) 1 tab PO DAILY [facility] Last Admin: 02/19/23 09:17 Dose: 1 tab Ondansetron HCl (Ondansetron 2 Mg/Ml Sdv 2 Ml) 4 mg IVP Q8H PRN PRN Reason: vomiting, or N/V if npo Pantoprazole Sodium (Pantoprazole Dr 40 Mg Tablet) 40 mg PO DAILY [facility] Last Admin: 02/19/23 09:18 Dose: 40 mg Propafenone HCl (Propafenone 150 Mg Tablet) 300 mg PO TID [facility] Last Admin: 02/19/23 09:18 Dose: 300 mg Rivaroxaban (Rivaroxaban 10 Mg Tablet) 20 mg PO DAILY [facility] Last Admin: 02/19/23 09:18 Dose: 20 mg Zinc Gluconate (Zinc Gluconate 50 Mg Tablet) 50 mg PO DAILY [facility] Last Admin: 02/19/23 09:17 Dose: 50 mg Discontinued Medications Acetaminophen (Acetaminophen 500 Mg Tablet) 1,000 mg PO ONCE ONE Stop: 02/17/23 05:15 Last Admin: 02/17/23 05:24 Dose: 1,000 mg Diltiazem HCl (Diltiazem 5 Mg/Ml Sdv 5 Ml) 15 mg IVP ONCE ONE Stop: 02/17/23 05:02 Last Admin: 02/17/23 05:09 Dose: 15 mg Diltiazem HCl (Diltiazem 5 Mg/Ml Sdv 5 Ml) 10 mg IVP ONCE ONE Stop: 02/17/23 05:34 Last Admin: 02/17/23 05:39 Dose: 10 mg Diltiazem HCl (Diltiazem 60 Mg Tablet) 60 mg PO Q6H [facility] Last Admin: 02/17/23 11:15 Dose: 60 mg Diltiazem HCl (Diltiazem 60 Mg Tablet) 60 mg PO Q8H [facility] Last Admin: 02/17/23 19:20 Dose: Not Given Diltiazem HCl (Diltiazem 60 Mg Tablet) 60 mg PO Q12H [facility] Last Admin: 02/17/23 20:20 Dose: Not Given Enoxaparin Sodium (Enoxaparin 40 Mg/0.4 Ml Syringe) 40 mg SUBCUT Q24H [facility] Last Admin: 02/17/23 08:38 Dose: 40 mg Furosemide (Furosemide 10 Mg/Ml Sdv 4ml) 40 mg IVP ONCE ONE Stop: 02/19/23 08:32 Last Admin: 01/02/24 09:17 Dose: 40 mg Sodium Chloride (Sodium Chloride 0.9%) 1,000 mls @ 999 mls/hr IV .Q1H1M ONE Stop: 02/17/23 06:01 Last Infusion: 02/17/23 06:46 Dose: Infused Diltiazem HCl 100 mg/ Sodium (Chloride) 100 mls @ 0 mls/hr IV .Q0M [facility]QU[facility]INE; Protocol Last Titration: 02/17/23 19:20 Dose: Infused Azithromycin 500 mg/ Sodium (Chloride) 250 mls @ 250 mls/hr IV ONCE ONE; Protocol Stop: 02/17/23 06:56 Last Infusion: 02/17/23 19:20 Dose: Infused Ceftriaxone Sodium 1,000 mg/ (Sodium Chloride) 50 mls @ 100 mls/hr IV ONCE ONE; Protocol Stop: 02/17/23 06:26 Last Infusion: 02/17/23 06:52 Dose: Infused Sodium Chloride (Sodium Chloride 0.9%) 1,000 mls @ 75 mls/hr IV .[id number] [facility]ACQU[facility]INE Stop: 02/17/23 23:34 Last Infusion: 02/18/23 07:34 Dose: Infused Azithromycin 500 mg/ Sodium (Chloride) 250 mls @ 250 mls/hr IV Q24H [facility]ACQUELINE; Protocol Stop: 02/18/23 13:29 Last Infusion: 02/18/23 14:56 Dose: Infused Iohexol (Iohexol 350 Mg/Ml 500 Ml Btl (Per Ml)) 0 ml IV ONCE ONE Stop: 02/18/23 19:19 Last Admin: 02/18/23 19:26 Dose: 100 ml Allergies Penicillins Allergy (Verified 04/24/22 07:59) Unknown phenylephrine Allergy (Verified 04/24/22 07:59) Unknown Sulfa (Sulfonamide Antibiotics) Allergy (Verified 04/24/22 07:59) Unknown Home Medications cholecalciferol (vitamin D3) 50 mcg (2,000 unit) capsule 50 mcg PO DAILY 07/20/19 [History Confirmed 02/17/23] coenzyme Q10 100 mg capsule (CoQ-10) 200 mg PO DAILY 07/20/19 [History Confirmed 02/17/23] diltiazem HCl 120 mg capsule,extended release 24 hr (Cartia XT) 120 mg PO DAILY 07/20/19 [History Confirmed 02/17/23] glucosamine sulf dipot chlr,msm,chond 550 mg-C 30 mg-sunny 1 mg capsule (Glucosamine Chondroitin) 1 cap PO DAILY 07/20/19 [History Confirmed 02/17/23] magnesium gluconate 27 mg magnesium (500 mg) tablet (Mag-G) 27 mg PO DAILY 07/20/19 [History Confirmed 02/17/23] multivitamin 1 tab PO DAILY 07/20/19 [History Confirmed 02/17/23] resveratrol 250 mg capsule 250 mg PO DAILY 07/20/19 [History Confirmed 02/17/23] finasteride 5 mg tablet 5 mg PO QDAY #90 tabs 04/24/22 [Rx Confirmed 02/17/23] losartan 25 mg tablet 25 mg PO DAILY 04/24/22 [History Confirmed 02/17/23] atorvastatin 40 mg tablet 40 mg PO DAILY 02/17/23 [History Confirmed 02/17/23] propafenone 300 mg tablet 300 mg PO TID 02/17/23 [History Confirmed 02/17/23] rivaroxaban 20 mg tablet (Xarelto) 20 mg PO DAILY 02/17/23 [History Confirmed 02/17/23] zinc gluconate 50 mg tablet 50 mg PO DAILY 02/17/23 [History Confirmed 02/17/23] Discharge Plan Discharge Patient Disposition: Home Condition: Stable Prescriptions: Continued diltiazem HCl [Cartia XT] 120 mg capsule,extended release 24hr 120 mg PO DAILY multivitamin Tablet 1 tab PO DAILY coenzyme Q10 [CoQ-10] 100 mg capsule 200 mg PO DAILY Glucosamine Chondroitin 550-30-1 mg capsule 1 cap PO DAILY magnesium gluconate [Mag-G] 27 mg magnesium (500 mg) tablet 27 mg PO DAILY resveratrol 250 mg capsule 250 mg PO DAILY cholecalciferol (vitamin D3) 50 mcg (2,000 unit) capsule 50 mcg PO DAILY losartan 25 mg tablet 25 mg PO DAILY finasteride 5 mg tablet 5 mg PO QDAY Qty: 90 3RF atorvastatin 40 mg tablet 40 mg PO DAILY propafenone 300 mg tablet 300 mg PO TID zinc gluconate 50 mg Tablet 50 mg PO DAILY Xarelto 20 mg tablet 20 mg PO DAILY Referrals: Myron Abbasi DO [Primary Care Provider] - 4-7 days Discharge Diet: Cardiac Discharge Activity: Resume usual activity Patient Instructions: Opioid Safety Transfer Attestations Time Spent in Transfer Care: greater than 30 min Quality Metrics Clinical Quality Measures [ No reported AMI, CVA or VTE this stay] Coding Level of Care Code 06535 Total time (in minutes) for Discharge: 75 Diagnoses Atrial fibrillation with rapid ventricular response I48.91 Hypertension I10 Hyperlipidemia E78.5
--- NOTE | 2023-02-19 16:59 | PC.NURSE ---
Dr. Gonzalez upped his Cardizem drip to 7.5 ml/hr.
[2023-02-20] VITALS (14 sets, daily range): BP systolic 99–125; BP diastolic 64–86; PULSE 63–136; RESP 14–25; TEMP 36.6–36.9; O2SAT 90–96; BMI 29.9
[2023-02-20 04:25] LABS: Magnesium 2.1 mg/dL (1.7-2.3); Phosphorus 4.3 mg/dL (2.5-4.5)
[2023-02-20] MEDS: cefTRIAXone 1,000 MG in sodium chloride 0.9% (plus) 50 ML 100 MG IV (05:37)
--- NOTE | 2023-02-20 08:13 | PC.NURSE ---
Provider is notified, per the rda nurse, that the patients aleksey hubbard ran out about 0300 this morning and he refused to let her hang another bag. His heart rate has been 100-120's since 0645. He is still in Afib. Per night nurse he did go into sinus rhythm for a short time over night. No new orders at this time.
--- NOTE | 2023-02-20 09:03 | PC.SOCIAL ---
Pg 2 IMM Explained to pt Pg 2 IMM. No questions voiced. Provided pt a copy. Initialed, dated, & timed a copy & placed in chart.
[2023-02-20] MEDS: finasteride 5 mg Tablet PO (09:04)
[2023-02-20] MEDS: atorvastatin 40 mg Tablet PO (09:04)
[2023-02-20] MEDS: pantoprazole DR 40 mg Tablet PO (09:04)
[2023-02-20] MEDS: multivitamin therapeutic Tablet 1 TAB PO (09:04)
[2023-02-20] MEDS: propafenone 150 mg Tablet 300 MG PO (09:05)
[2023-02-20] MEDS: zinc gluconate 50 mg Tablet PO (09:05)
[2023-02-20] MEDS: rivaroxaban 10 mg Tablet 20 MG PO (09:05)
[2023-02-20] MEDS: azithromycin 250 mg Tablet 500 MG PO (09:05)
--- NOTE | 2023-02-20 10:17 | PC.NURSE ---
Dr. Camargo order Cardizem 60mg Q6H to start now, and to stop the cardizem 30mg and the Rythmol. Order entered.
[2023-02-20] MEDS: dilTIAZem 60 mg Tablet PO ×3 (10:44→22:57)
--- NOTE | 2023-02-20 12:33 | PM.PN ---
Subjective Subjective: Patient doing well. Has decided to stay here for further management. Vitals/I&O/Wt Last Vital Signs Temp 97.9 F 02/20/23 11:08 Pulse 110 H 02/20/23 11:08 Resp 22 H 02/20/23 11:08 BP 99/64 02/20/23 11:08 Pulse Ox 92 02/20/23 11:08 O2 Del Method Room Air 02/20/23 11:08 O2 Flow Rate 3 02/18/23 08:51 02/19/23 02/20/23 02/20/23 22:59 06:59 14:59 Intake Total 167.625 / 507.625 94 / 601.625 240 / 240 Output Total 600 / 1600 750 / 2350 420 / 420 Balance -432.375 / -1092.375 -656 / -1748.375 -180 / -180 Weight last 48 hrs Weight 209 lb 1.6 oz Weight 209 lb 1.6 oz Weight 110 lb 9.6 oz Physical Exam Narrative: GENERAL: Patient is alert, awake and oriented x3. [] NECK: No jugular vein distension. [] HEENT: No cyanosis. No icterus. No pallor. [] HEART: Irregularly irregular, tachycardic. LUNGS: Diminished air entry. CENTRAL NERVOUS SYSTEM: Grossly nonfocal. [] EXTREMITIES: Lower extremities with no edema Data 02/21/23 03:32 02/21/23 03:32 Micro: Microbiology 02/19/23 06:25 Gram Stain - Final Sputum - Expectorated Sputum Sputum Culture - Preliminary A&P Assessment and plan (1) Atrial fibrillation with rapid ventricular response: (2) Hypertension: (3) Hyperlipidemia: Plan Patient is scheduled to stay at our facility for further management of atrial fibrillation. Will switch to Tikosyn or amiodarone. Stop propafenone. Tomorrow morning we will obtain an EKG and depending on QT interval decide medication management. Will switch Cardizem to 60 mg every 6 Continue telemetry monitoring. Continue anticoagulation. Thank you for involving us with care of this patient. Please call with questions. Attestations Medical Necessity Statement*: Care expected to cross 2 midnights. Coding Level of Care Code Acute Code for [facility] Diagnoses Atrial fibrillation with rapid ventricular response I48.91 Hypertension I10 Hyperlipidemia E78.5
--- NOTE | 2023-02-20 13:02 | P.PN_ITS ---
Subjective 2 Subjective: Patient would no longer like to go to [facility]. He would like to cancel the transfer and let us take care of him here. Discussed with him regarding Tikosyn versus amiodarone. He would like to talk with cardiology to discuss options. Currently he is still in atrial fibrillation with a rate of 1 20-1 40. Asymptomatic however. Blood pressure stable. Vitals/I&O/Wt Last Vital Signs Temp 97.9 F 02/20/23 11:08 Pulse 110 H 02/20/23 11:08 Resp 22 H 02/20/23 11:08 BP 99/64 02/20/23 11:08 Pulse Ox 92 02/20/23 11:08 O2 Del Method Room Air 02/20/23 11:08 O2 Flow Rate 3 02/18/23 08:51 02/19/23 02/20/23 02/20/23 22:59 06:59 14:59 Intake Total 167.625 / 507.625 94 / 601.625 480 / 480 Output Total 600 / 1600 750 / 2350 420 / 420 Balance -432.375 / -1092.375 -656 / -1748.375 60 / 60 Weight last 48 hrs Weight 94.846 kg Weight 94.846 kg Weight 50.167 kg Physical Exam 2 Narrative: General: No acute distress, AO x3 HEENT: PERRLA, pupils bilaterally equal and reactive Chest: Normal vesicular breath sounds, no added sounds, equal good air entry bilaterally CVS: S1-S2 irregularly irregular, tachycardia, no gallops, no rubs Abdomen: Soft, nontender, no organomegaly, bowel sounds present Neuro: No focal deficits, no facial deformity, AO x3 Data 02/19/23 03:55 02/19/23 03:55 Micro: Microbiology 02/19/23 06:25 Gram Stain - Final Sputum - Expectorated Sputum Sputum Culture - Preliminary A&P Assessment and plan (1) Atrial fibrillation with rapid ventricular response: Patient did not allow us to restart Cardizem drip overnight. Currently he is off. Further management to be dictated after he is seen by cardiology. ? We will stop propafenone at this time. Plan to start Tikosyn versus amiodarone tomorrow morning. Continue normal saline 75 cc/h. Continue home dose of Xarelto. D-dimer elevated, CTA ruled out PE. TSH okay. Patient back in A-fib at this time. Does not want to go to [facility] anymore. Echo shows mild mitral regurgitation. (2) Hyperlipidemia: Continue with home dose of statin. Check lipid panel. (3) Hypertension: Goal blood pressure less than 140/90 mmHg. Hold off on home dose of losartan. Uptitrate as for goal blood pressures. (4) Hypoxia: #Community-acquired pneumonia Check home oxygen evaluation. Patient 8889% on room air and drops when he talks. Patient requiring 3 L nasal cannula with saturating 9495%. Chest x-ray reviewed. Focal infiltrate left lateral lung base. Questionable developing stringy infiltrate in right upper lung field. Continue on ceftriaxone IV and azithromycin 500 daily. Will complete 7 days total. Check respiratory viral panel?unable to do as we do not have kits available at this time. Check procalcitonin?negative Check bacterial antigen.?Negative Check sputum culture and Gram stain?negative to date DuoNeb every 6 hours as needed. Patient denies smoking. (5) Pneumonia: Plan CODE STATUS: Full code Cardiac diet Xarelto will suffice for DVT prophylaxis Protonix for PUD prophylaxis. Attestations 2 Medical Necessity Statement*: Requires inpatient stay for cardiac monitoring due to atrial fibrillation with RVR and starting of new antiarrhythmic. Diagnoses Atrial fibrillation with rapid ventricular response I48.91 Hyperlipidemia E78.5 Hypertension I10 Hypoxia R09.02 Pneumonia J18.9
[2023-02-21] VITALS (11 sets, daily range): BP systolic 120–135; BP diastolic 60–80; PULSE 58–89; RESP 13–19; TEMP 36.4–37.3; O2SAT 90–96
[2023-02-21 04:50] LABS: Basophils % 0.5 %; Eosinophils % 0.5 %; Hematocrit 36.2 % (37-53); Lymphocytes # 0.8 10^3/uL (0.8-4.8); Lymphocytes % 14.5 %; Mean Corpuscular HGB Conc 33.1 g/dL (30-55); Mean Corpuscular Volume 96.5 fl (82-101); Monocytes # 0.6 10^3/uL (0.2-0.9); Monocytes % 11.1 %; Neutrophils # 4.12 10^3/uL (1.8-7.7); Neutrophils % 72.9 %; Nucleated Red Blood Cells % 0 %; Platelet Count 331 10^3/cmm (157-399); Red Blood Count 3.75 10^6/uL (3.85-5.65); Red Cell Distribution Width 12.8 % (12.1-15.1); White Blood Count 5.66 10^3/uL (3.29-11.43)
[2023-02-21] MEDS: cefTRIAXone 1,000 MG in sodium chloride 0.9% (plus) 50 ML 100 MG IV (05:17)
[2023-02-21] MEDS: dilTIAZem 60 mg Tablet PO ×2 (05:17→09:59)
[2023-02-21 05:21] LABS: Anion Gap 15.1 (5-19); Blood Urea Nitrogen 14 mg/dL (8-23); Calcium 8.9 mg/dL (8.5-10.5); Carbon Dioxide 27 mmol/L (22-29); Chloride 101 mmol/L (98-107); Glucose 146 mg/dL (65-115); Magnesium 2.3 mg/dL (1.7-2.3); Osmolality Calculated 291 mOsm/kg (285-295); Potassium 4.1 mmol/L (3.5-5.1); Sodium 139 mmol/L (136-145)
--- NOTE | 2023-02-21 07:44 | P.PN_ITS ---
Subjective 2 Subjective: Patient converted to normal sinus rhythm last night. His QTc interval is 445. Vitals/I&O/Wt Last Vital Signs Temp 97.9 F 02/21/23 07:10 Pulse 72 02/21/23 07:10 Resp 13 02/21/23 07:10 BP 135/67 02/21/23 07:10 Pulse Ox 94 02/21/23 07:10 O2 Del Method Room Air 02/21/23 07:10 O2 Flow Rate 3 02/20/23 22:40 02/20/23 02/21/23 02/21/23 22:59 06:59 14:59 Intake Total 290 / 770 50 / 820 Output Total 350 / 770 Balance 290 / 350 -300 / 50 Weight last 48 hrs Weight 209 lb Weight 209 lb 1.6 oz Physical Exam 2 Narrative: GENERAL: Patient is alert, awake and oriented x3. [] NECK: No jugular vein distension. [] HEENT: No cyanosis. No icterus. No pallor. [] HEART: Irregularly irregular, tachycardic. LUNGS: Diminished air entry. CENTRAL NERVOUS SYSTEM: Grossly nonfocal. [] EXTREMITIES: Lower extremities with no edema Data 02/21/23 03:32 02/21/23 03:32 Micro: Microbiology 02/17/23 06:21 Blood Culture - Preliminary Blood 02/17/23 06:17 Blood Culture - Preliminary Blood 02/19/23 06:25 Gram Stain - Final Sputum - Expectorated Sputum Sputum Culture - Preliminary A&P Assessment and plan (1) Atrial fibrillation with rapid ventricular response: (2) Hypertension: (3) Hyperlipidemia: Plan Given patient's prolonged QTc interval, we decided not to start to consent. Will load with amiodarone 400 mg twice daily for 7 days and then 400 mg daily. Continue Cardizem. Continue anticoagulation. Thank you for involving us with care of this patient. Please call with questions. Attestations 2 Medical Necessity Statement*: Care expected to cross 2 midnights. Coding Level of Care Code Acute Code for [facility] Fwd Diagnoses Atrial fibrillation with rapid ventricular response I48.91 Hypertension I10 Hyperlipidemia E78.5
--- NOTE | 2023-02-21 08:36 | ECG_ITS ---
[facility] Test Date: 2023-02-21 Pat Name: Jan Beckwith Department: Room: 102 Gender: Male Back Tufter: : 1945 Requested By: Jordana Gonzalez Order Number: [id number] Lorraine MD: Lawrence Camargo M.D. Measurements Intervals [place] Rate: 63 P: 19 GA: 183 QRS: 14 QRSD: 89 T: 49 QT: 431 QTc: 445 Interpretive Statements SINUS RHYTHM NONSPECIFIC T-WAVE ABNORMALITY Compared to ECG 02/17/2023 05:02:03 T-wave abnormality now present Atrial fibrillation no longer present Electronically Signed On 02-21-2023 13:04:54 PLATE GAUGER by Lawrence Camargo M.D. [id number]
[2023-02-21] MEDS: zinc gluconate 50 mg Tablet PO (09:59)
[2023-02-21] MEDS: azithromycin 250 mg Tablet 500 MG PO (09:59)
[2023-02-21] MEDS: multivitamin therapeutic Tablet 1 TAB PO (09:59)
[2023-02-21] MEDS: atorvastatin 40 mg Tablet PO (09:59)
[2023-02-21] MEDS: rivaroxaban 10 mg Tablet 20 MG PO (09:59)
[2023-02-21] MEDS: pantoprazole DR 40 mg Tablet PO (09:59)
[2023-02-21] MEDS: finasteride 5 mg Tablet PO (10:00)
[2023-02-21] MEDS: amiodarone 200 mg Tablet 400 MG PO ×2 (11:19→18:01)
--- NOTE | 2023-02-21 11:45 | P.PN_ITS ---
Subjective 2 Subjective: Seen this morning. Will be starting amiodarone today. QTc 445. Patient agreeable. Currently in sinus rhythm. Vitals/I&O/Wt Last Vital Signs Temp 97.8 F 02/21/23 11:14 Pulse 66 02/21/23 11:14 Resp 17 02/21/23 11:14 BP 122/60 02/21/23 11:14 Pulse Ox 93 02/21/23 11:14 O2 Del Method Room Air 02/21/23 11:14 O2 Flow Rate 3 02/20/23 22:40 02/20/23 02/21/23 02/21/23 22:59 06:59 14:59 Intake Total 290 / 770 50 / 820 240 / 240 Output Total 350 / 770 Balance 290 / 350 -300 / 50 240 / 240 Weight last 48 hrs Weight 94.801 kg Weight 94.846 kg Physical Exam 2 Narrative: General: No acute distress, AO x3 HEENT: PERRLA, pupils bilaterally equal and reactive Chest: Mild crackles at bases bilaterally. CVS: S1-S2 currently sinus rhythm. Abdomen: Soft, nontender, no organomegaly, bowel sounds present Neuro: No focal deficits, no facial deformity, AO x3 Data 02/21/23 03:32 02/21/23 03:32 Micro: Microbiology 02/19/23 06:25 Gram Stain - Final Sputum - Expectorated Sputum Sputum Culture - Final 02/17/23 06:21 Blood Culture - Preliminary Blood 02/17/23 06:17 Blood Culture - Preliminary Blood A&P Assessment and plan (1) Atrial fibrillation with rapid ventricular response: Patient did not allow us to restart Cardizem drip overnight. Currently he is off. Further management to be dictated after he is seen by cardiology. Stop IV fluids Continue home dose Xarelto CT ruled out PE TSH okay Sinus rhythm at this point. Amio 400 twice daily x 7 days thereafter 400 daily. Continue to monitor on telemetry in the hospital today. Echo shows mild mitral regurgitation. Lasix 20 IV x 1 today. (2) Hyperlipidemia: Continue with home dose of statin. Check lipid panel. (3) Hypertension: Goal blood pressure less than 140/90 mmHg. Hold off on home dose of losartan. Uptitrate as for goal blood pressures. (4) Hypoxia: #Community-acquired pneumonia Check home oxygen evaluation. Saturating 93% on room air. Chest x-ray reviewed. Focal infiltrate left lateral lung base. Questionable developing stringy infiltrate in right upper lung field. Continue on ceftriaxone IV and azithromycin 500 daily. Will complete 7 days total. Check respiratory viral panel?unable to do as we do not have kits available at this time. Check procalcitonin?negative Check bacterial antigen.?Negative Check sputum culture and Gram stain?negative to date DuoNeb every 6 hours as needed. Patient denies smoking. (5) Pneumonia: Plan CODE STATUS: Full code Cardiac diet Xarelto will suffice for DVT prophylaxis Protonix for PUD prophylaxis. Attestations 2 Medical Necessity Statement*: Requires continued cardiac telemetry monitoring since starting an antiarrhythmic today. Potential discharge in next 24 to 48 hours. Diagnoses Atrial fibrillation with rapid ventricular response I48.91 Hyperlipidemia E78.5 Hypertension I10 Hypoxia R09.02 Pneumonia J18.9
[2023-02-21] MEDS: FUROsemide 10 mg/mL SDV 2mL 20 MG IVP (12:57)
[2023-02-21] MEDS: dilTIAZem 30 mg Tablet PO ×2 (15:41→20:58)
[2023-02-22] VITALS (8 sets, daily range): BP systolic 118–135; BP diastolic 58–69; PULSE 62–72; RESP 16–18; TEMP 36.3–36.8; O2SAT 91–95; BMI 29.0
[2023-02-22] MEDS: dilTIAZem 30 mg Tablet PO ×2 (02:18→08:01)
[2023-02-22] MEDS: cefTRIAXone 1,000 MG in sodium chloride 0.9% (plus) 50 ML 100 MG IV (05:19)
--- NOTE | 2023-02-22 07:35 | PM.PN ---
Subjective Subjective: Patient staying in normal sinus rhythm. Had brief run of atrial fibrillation Vitals/I&O/Wt Last Vital Signs Temp 98.2 F 02/22/23 04:00 Pulse 63 02/22/23 06:00 Resp 16 02/22/23 04:00 BP 124/62 02/22/23 04:00 Pulse Ox 95 02/22/23 04:00 O2 Del Method Room Air 02/22/23 04:00 O2 Flow Rate 3 02/22/23 01:59 02/21/23 02/22/23 02/22/23 22:59 06:59 14:59 Intake Total 240 / 720 250 / 970 Output Total 1520 / 2170 400 / 2570 Balance -1280 / -1450 -150 / -1600 Weight last 48 hrs Weight 202 lb 1.6 oz Weight 202 lb 1.6 oz Weight 209 lb Physical Exam Narrative: GENERAL: Patient is alert, awake and oriented x3. [] NECK: No jugular vein distension. [] HEENT: No cyanosis. No icterus. No pallor. [] HEART: Regular, S1 and S 2 LUNGS: Diminished air entry. CENTRAL NERVOUS SYSTEM: Grossly nonfocal. [] EXTREMITIES: Lower extremities with no edema Data 02/21/23 03:32 02/21/23 03:32 Micro: Microbiology 02/19/23 06:25 Gram Stain - Final Sputum - Expectorated Sputum Sputum Culture - Final A&P Assessment and plan (1) Atrial fibrillation with rapid ventricular response: (2) Hypertension: (3) Hyperlipidemia: Plan Patient is staying in normal sinus rhythm. Continue amiodarone 400 mg twice daily for 7 days and then 400 mg daily Continue Cardizem 120 mg daily. Will also give 30 mg short acting Cardizem for as needed use up to 2 times daily. Low caffiene intake and exercise Thank you for involving us with care of this patient. Please call with questions. Attestations Medical Necessity Statement*: Care expected to cross 2 midnights. Coding Level of Care Code Acute Code for [facility] Fwd Diagnoses Atrial fibrillation with rapid ventricular response I48.91 Hypertension I10 Hyperlipidemia E78.5
[2023-02-22] MEDS: amiodarone 200 mg Tablet 400 MG PO (08:00)
[2023-02-22] MEDS: finasteride 5 mg Tablet PO (08:01)
[2023-02-22] MEDS: multivitamin therapeutic Tablet 1 TAB PO (08:01)
[2023-02-22] MEDS: zinc gluconate 50 mg Tablet PO (08:01)
[2023-02-22] MEDS: rivaroxaban 10 mg Tablet 20 MG PO (08:01)
[2023-02-22] MEDS: pantoprazole DR 40 mg Tablet PO (08:01)
[2023-02-22] MEDS: azithromycin 250 mg Tablet 500 MG PO (08:01)
[2023-02-22] MEDS: atorvastatin 40 mg Tablet PO (08:01)
--- NOTE | 2023-02-22 12:11 | P.DS_ITS ---
Discharge Providers Date of Admission: 02/17/23 06:42 Date of Discharge: February 22, 2023 Attending Provider at Admission: Dorys Michaud MD Attending Provider at Discharge: Jordana Gonzalez MD Primary Care Provider: Myron Abbasi DO Diagnoses at Discharge Discharge Diagnosis (1) Atrial fibrillation with rapid ventricular response: Status: Acute (2) Hypertension: Status: Acute (3) Hyperlipidemia: Status: Acute Reason for Visit Reason for Visit: high heart rate Hospital Course Hospital Course Patient admitted for A-fib with RVR placed on Cardizem drip initially. He converted to sinus rhythm on his home dose of Cardizem and propafenone 303 times daily. Continue on Xarelto. He does require oxygen during nighttime and has had chest congestion lately. Diagnosed with community-acquired pneumonia during hospital stay and being treated with IV antibiotics ceftriaxone and azithromycin for that. COVID, flu negative. Sputum culture Gram stain negative to date. Bacterial antigen Legionella, Streptococcus negative. He completed 5 days of azithromycin. Will be discharged home on cefdinir x 10 more days. He is on room air during daytime but requires 2 L at nighttime. On CPAP at night. Echo was performed which shows mild mitral regurgitation otherwise unremarkable. Patient is supposed to go for ablation as an outpatient in [place]. Patient wanted to be transferred to [facility] where his traveling sales representative is in order to get ablation or start a new medication. He did not want to try medication here. However he found out that he was #41 and line for ablation and that Rashida was going to be trying either Tikosyn or amiodarone after transfer. He decided to stay here. QTc was checked and he was not appropriate for Tikosyn therefore was loaded with amiodarone. He will be discharged home on Cardizem 120 daily, Amio 400 twice daily x 6 days and then reduce dose to 400 daily. He will also be given short acting Cardizem 30 every 6 hours as needed for atrial fibrillation. He is not to take that if his systolic blood pressure is less than 110. He will also be set up with an event monitor at discharge. All questions answered. Patient will be discharged home in stable condition. Appreciate recommendations by cardiology during hospital stay. Of note patient did require as needed Lasix x 2 days during hospital stay for mild pulmonary edema secondary to longstanding A-fib. Physical Exam Narrative: General: No acute distress, AO x3 HEENT: PERRLA, pupils bilaterally equal and reactive Chest: Clear to auscultation bilaterally. CVS: S1-S2 currently sinus rhythm. Abdomen: Soft, nontender, no organomegaly, bowel sounds present Neuro: No focal deficits, no facial deformity, AO x3 Discharge Data Studies Completed and Pending Completed Studies During Hospitalization Category Date Time Status CTA PE [CT angio chest PE protcl [id number]] Stat Cat Scan 02/18/23 16:27 Completed XR chest 1V portable [id number] Stat Exams 02/18/23 11:57 Completed XR chest 1V portable [id number] Stat Exams 02/17/23 05:01 Completed CV. echo complete* [id number] Routine Ultrasound 02/17/23 10:14 Completed Pending at discharge Category Date Time Status Blood Cultures ([facility]) Routine Lab 02/17/23 06:17 Results Blood Cultures ([facility]) Routine Lab 02/17/23 06:21 Results Respiratory Panel 2 Stat Lab 02/18/23 12:16 Uncollected Radiology Impressions Chest X-Ray 02/18/23 11:57 IMPRESSION: 1. Focal infiltrate is again seen in the left lateral lung base. 2. Questionable developing stringy infiltrate in the right upper lung field. Chest CTA 02/18/23 16:27 IMPRESSION: 1. No pulmonary embolus. 2. Bilateral pleural effusions with smooth septal markings throughout both lungs and ground-glass opacities in a dependent distribution which can be seen in the setting CHF exacerbation. 3. Atelectatic changes in the lung bases with no focal consolidation. Laboratory Results WBC 5.66 10^3/uL (3.29-11.43) 02/21/23 03:32 RBC 3.75 10^6/uL (3.85-5.65) L 02/21/23 03:32 Hgb 12.00 g/dL (11.27-16.99) 02/21/23 03:32 Hct 36.2 % (37-53) L 02/21/23 03:32 MCV 96.5 fl (82-101) 02/21/23 03:32 MCH 32.0 pg (27-33) 02/21/23 03:32 MCHC 33.1 g/dL (30-55) 02/21/23 03:32 RDW 12.8 % (12.1-15.1) 02/21/23 03:32 Plt Count 331 10^3/cmm (157-399) 02/21/23 03:32 MPV 9.0 fL (7.4-10.4) 02/21/23 03:32 Neut % (Auto) 72.9 % 02/21/23 03:32 Lymph % (Auto) 14.5 % 02/21/23 03:32 [place] % (Auto) 11.1 % 02/21/23 03:32 Eos % (Auto) 0.5 % 02/21/23 03:32 Baso % (Auto) 0.5 % 02/21/23 03:32 Neut # (Auto) 4.12 10^3/uL (1.8-7.7) 02/21/23 03:32 Lymph # (Auto) 0.8 10^3/uL (0.8-4.8) 02/21/23 03:32 [place] # (Auto) 0.6 10^3/uL (0.2-0.9) 02/21/23 03:32 Eos # (Auto) 0.0 10^3/uL (0.0-0.8) 02/21/23 03:32 Baso # (Auto) 0.0 10^3/uL (0.0-0.1) 02/21/23 03:32 Nucleated RBC % (auto) 0 % 02/21/23 03:32 Nucleated RBCs # 0.0 /100WBC 02/21/23 03:32 D-Dimer 1.83 ug/mLFEU (0-0.59) H 02/18/23 14:10 Sodium 139 mmol/L (136-145) 02/21/23 03:32 Potassium 4.1 mmol/L (3.5-5.1) 02/21/23 03:32 Chloride 101 mmol/L (98-107) 02/21/23 03:32 Carbon Dioxide 27 mmol/L (22-29) 02/21/23 03:32 Anion Gap 15.1 (5-19) 02/21/23 03:32 BUN 14 mg/dL (8-23) 02/21/23 03:32 Creatinine 0.9 mg/dL (0.7-1.2) 02/21/23 03:32 GFR Calculation Not Reportable 02/21/23 03:32 Glucose 146 mg/dL (65-115) H 02/21/23 03:32 Estimat Average Glucose 146 02/18/23 03:08 Hemoglobin A1c 6.7 % (4.0-6.0) H 02/18/23 03:08 Calculated Osmolality 291 mOsm/kg (285-295) 02/21/23 03:32 Calcium 8.9 mg/dL (8.5-10.5) 02/21/23 03:32 Phosphorus 4.3 mg/dL (2.5-4.5) 02/20/23 03:38 Magnesium 2.3 mg/dL (1.7-2.3) 02/21/23 03:32 Iron 21 ug/dL (59-158) L 02/17/23 05:07 TIBC 204 mcg/dl 02/17/23 05:07 % Saturation 10.2 % (20-50) L 02/17/23 05:07 Unsat Iron Binding 183 ug/dL (112-347) 02/17/23 05:07 Total Bilirubin 0.5 mg/dL (0.15-1.2) 02/18/23 03:08 AST 12 U/L (0-40) 02/18/23 03:08 ALT 26 U/L (0-41) 02/18/23 03:08 Alkaline Phosphatase 53 U/L (40-130) 02/18/23 03:08 NT-Pro-B Natriuret Pep 1207 pg/mL (0-450) H 02/17/23 05:07 Total Protein 6.1 g/dL (6.6-8.7) L 02/18/23 03:08 Albumin 3.2 g/dL (3.5-5.2) L 02/18/23 03:08 Globulin 2.9 g/dL (1.3-4.6) 02/18/23 03:08 Triglycerides 53 mg/dL (0-150) 02/18/23 03:08 Cholesterol 96 mg/dL (0-200) 02/18/23 03:08 LDL Cholesterol, Calc 52 mg/dL (50-129) 02/18/23 03:08 Total VLDL Cholesterol 11 mg/dL (0-30) 02/18/23 03:08 HDL Cholesterol 33 mg/dL (60-100) L 02/18/23 03:08 Cholesterol/HDL Ratio 2.91 mg/dL (1.0-5.00) 02/18/23 03:08 Vitamin B12 695 pg/mL (232-1245) 02/17/23 05:07 Folate 18.9 ng/mL (4.5-32.2) 02/18/23 03:08 Procalcitonin 0.04 ng/mL (0-0.5) 02/18/23 03:08 TSH 1.86 uIU/mL (0.27-4.20) 02/17/23 05:07 Free T4 1.18 ng/dL (0.82-1.77) 02/17/23 05:07 Free T3 2.3 PG/ML (2.0-4.4) 02/17/23 05:07 Urine Color Yellow (Yellow) 02/17/23 11:08 Urine Appearance Clear (CLEAR) 02/17/23 11:08 Urine pH 7 (5-7) 02/17/23 11:08 Ur Specific [place] 1.010 (1.005-1.030) 02/17/23 11:08 Urine Protein Neg (Negative) 02/17/23 11:08 Urine Glucose (UA) 2+ (Normal) H 02/17/23 11:08 Urine Ketones Negative (Negative) 02/17/23 11:08 Urine Blood Neg (Negative) 02/17/23 11:08 Urine Nitrate Negative (Negative) 02/17/23 11:08 Urine Bilirubin Neg (Negative) 02/17/23 11:08 Urine Urobilinogen Norm mg/dL (Negative) 02/17/23 11:08 Ur Leukocyte Esterase Negative (Negative) 02/17/23 11:08 Influenza Type A Ag negative (Negative) 02/17/23 05:34 Influenza Type B Ag negative (Negative) 02/17/23 05:34 SARS-CoV-2 Ag (Rapid) negative (Negative) 02/17/23 05:34 Vitals Last Vital Signs Temp 97.9 F 02/22/23 08:00 Pulse 66 02/22/23 11:58 Resp 16 02/22/23 11:58 BP 126/58 02/22/23 11:58 Pulse Ox 94 02/22/23 11:58 O2 Del Method Room Air 02/22/23 11:58 O2 Flow Rate 3 02/22/23 01:59 Discharge Plan Discharge Patient Disposition: Home Condition: Stable Prescriptions: New amiodarone [Pacerone] 200 mg Tablet See Rx Instructions .ROUTE .COMPLEX 30 Days Qty: 60 0RF Rx Instructions: 400 mg bid x 6 days, then drop dose to 400 mg once daily diltiazem HCl 30 mg Tablet 30 mg PO Q6H PRN (Reason: Atrial Fibrillation) Qty: 15 0RF Rx Instructions: dont use if bp systolic < 110 cefdinir 300 mg capsule 300 mg PO BID 7 Days Qty: 14 0RF Continued diltiazem HCl [Cartia XT] 120 mg capsule,extended release 24hr 120 mg PO DAILY multivitamin Tablet 1 tab PO DAILY coenzyme Q10 [CoQ-10] 100 mg capsule 200 mg PO DAILY Glucosamine Chondroitin 550-30-1 mg capsule 1 cap PO DAILY magnesium gluconate [Mag-G] 27 mg magnesium (500 mg) tablet 27 mg PO DAILY resveratrol 250 mg capsule 250 mg PO DAILY cholecalciferol (vitamin D3) 50 mcg (2,000 unit) capsule 50 mcg PO DAILY finasteride 5 mg tablet 5 mg PO QDAY Qty: 90 3RF atorvastatin 40 mg tablet 40 mg PO DAILY zinc gluconate 50 mg Tablet 50 mg PO DAILY Xarelto 20 mg tablet 20 mg PO DAILY Discontinued losartan 25 mg tablet 25 mg PO DAILY propafenone 300 mg tablet 300 mg PO TID Discharge Orders: Discharge Order (Routine); Ordered 02/22/23 Ordered By: Jordana Gonzalez Other Ambulatory Orders: MCT/Event Monitor 30 Days (Routine) Timeframe: 1 Day Facility: [facility] - Location: Radiology Ordered By: Jordana Gonzalez Referrals: Lawrence Camargo M.D [Physician] - 1 month Linda Elena FNP [Nurse Practitioner] - 1 week Myron Abbasi DO [Primary Care Provider] - 03/12/23 7:40 am Discharge Diet: Cardiac Discharge Activity: Resume usual activity Patient Instructions: Diltiazem (By mouth) (Cardizem, Cardizem CD, Cardizem LA, Cardizem SR), Amiodarone (By mouth) (Cordarone, Pacerone), Cefdinir (By mouth) (Omnicef), Opioid Safety Discharge Attestations Time Spent in Discharge Care*: greater than 30 min Quality Metrics Clinical Quality Measures [ No reported AMI, CVA or VTE this stay] Coding Level of Care Code 71517 Total time (in minutes) for Discharge: 40 Diagnoses Atrial fibrillation with rapid ventricular response I48.91 Hypertension I10 Hyperlipidemia E78.5
--- NOTE | 2023-02-22 14:02 | PC.NURSE ---
Discharge Note Patient discharged to [home] via [w/c to POV] accompanied by [his spouse]. Discharge instructions reviewed with patient and/or outside dealer sales representative. Mobile pharmacy medications and/or prescriptions provided. Belongings/home medications returned.
== END 2023-02-22 13:57 | disposition home or self-care (01) | DRG 308 ==
LOC: ER 05:59 → CSU 06:42
PROVIDERS: Student in an Organized Health Care Education/Training Program; Admitting Provider Student in an Organized Health Care Education/Training Program; Emergency Provider Emergency Medicine; PCP Electrodiagnostic Medicine; Visit Provider Internal Medicine
DX: I48.11 Longstanding persistent atrial fibrillation (principal); J18.9 Pneumonia, unspecified organism; Z79.01 Long term (current) use of anticoagulants; I10 Essential (primary) hypertension; E78.5 Hyperlipidemia, unspecified; Z20.822 Contact with and (suspected) exposure to COVID-19; G47.33 Obstructive sleep apnea (adult) (pediatric); Z99.89 Dependence on other enabling machines and devices; R09.02 Hypoxemia; R97.20 Elevated prostate specific antigen [PSA]
CPT/HCPCS: 36415; 71045; 71275; 80048; 80053; 80061; 81003; 82607; 82746; 83036; 83540; 83550; 83735; 83880; 84100; 84145; 84439; 84443; 84481; 85025; 85378; 86403; 87040; 87070; 87205; 87426; 87449; 87804; 93005; 93306; 94640; 94660; 94664; 96365; 96367; 96372; 96375; 96376; 99285; J0456; J0696; J1650; J1940; J3490; J7030; J7050; J7644; Q0144; Q9967

== ENCOUNTER 2023-03-05 19:26 | Emergency (ER) | payer MEDICARE, OTHER, SELFPAY ==
[2023-03-05 19:34] VITALS: BP 159/78; PULSE 65; RESP 14; TEMP 36.7; O2SAT 97
--- NOTE | 2023-03-05 19:51 | ECG_ITS ---
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 Measurements Intervals [place] Rate: 61 P: 22 MS: 187 QRS: 3 QRSD: 81 T: 33 QT: 346 QTc: 350 Interpretive Statements SINUS RHYTHM LOW QRS VOLTAGE IN PRECORDIAL LEADS [QRS DEFLECTION < 1.0 mV IN CHEST LEADS] NONSPECIFIC T-WAVE ABNORMALITY Compared to ECG 02/21/2023 08:36:33 Low QRS voltage now present T-wave abnormality still present Electronically Signed On 03-06-2023 14:18:23 MATTRESS INSPECTOR by Presley Evans M.D. [id number]
--- NOTE | 2023-03-05 20:19 | ED_ITS ---
HPI - General Adult General: Chief complaint: General Medical Stated complaint: High BP Time Seen by Provider: 03/05/23 19:52 Source: patient Mode of arrival: ambulatory Limitations: no limitations History of Present Illness: 77-year-old male states that he been adm itted here recently and had meds adjusted for A-fib with RVR he is on amiodarone diltiazem states that he had been on losartan and then stopped it states that yesterday today has been hypertensive from the 160s to 180s. He denies any chest pain denies any headache denies any symptoms currently. Associated symptoms: Deny chest pain, dyspnea, headache(s), nausea, rash or vomiting Review of Systems Const: Denies: fever(s), chills, body aches or change in appetite Eyes: Denies: blurry vision or eye discomfort ENMT: Denies: throat pain or dental pain Card: Denies: chest pain Resp: Denies: dyspnea GI: Denies: abdominal pain, nausea, vomiting or diarrhea Musc: Denies: neck pain or back pain Skin/Breast: Denies: rash Neuro: Denies: headache(s) PFSH ED PFSH: Medical History History of prostatitis Normal colonoscopy Hypertension Hyperlipidemia Elevated PSA Chronically elevated PSA with normal ADARSH's. 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 Negative biopsy and follow-up -3 T MRI. Surgical History Hx of transurethral resection of prostate H/O vasectomy Family History Mother , at age 78 Myocardial infarction (lateral wall) Father , at age 83 Emphysema lung Social History Smoking and tobacco/nicotine status: never used tobacco/nicotine Alcohol intake: never Marital status: Current occupational status: employed Physical Exam Const: COMMON NORMALS: no acute distress, patient oriented x3 and healthy appearing HENMT: COMMON NORMALS: normocephalic and atraumatic HEAD & SCALP: normocephalic and atraumatic Eye: COMMON NORMALS: conjunctivae normal CONJUNCTIVA: Yes conjunctivae normal Neck/C-Spine: COMMON NORMALS: full ROM and supple Chest: COMMONS NORMALS: normal inspection of the chest Resp: COMMON NORMALS: normal respiratory effort Cardio: COMMON NORMALS: regular rate, regular rhythm and No murmurs present (Cardio) RATE: regular rate RHYTHM: regular rhythm Extremity: COMMON NORMALS: normal to inspection and full ROM Neuro: COMMON NORMALS: patient oriented x3, moves all extremities and no focal motor deficits Psych: COMMON NORMALS: mental status grossly normal, Normal thought process present and cooperative THOUGHT PROCESS: Normal thought process present Skin: COMMON NORMALS: no rashes or lesions noted and no wounds GENERAL SKIN EXAM: no rashes or lesions noted Course Vital Signs: Vital signs: Vital Signs Temperature 98.0 F 03/05/23 19:34 Pulse Rate 65 03/05/23 19:34 Respiratory Rate 14 03/05/23 19:34 Blood Pressure 159/78 03/05/23 19:34 Pulse Oximetry 97 03/05/23 19:34 Oxygen Delivery Me thod Room Air 03/05/23 19:34 MDM - General Adult Medical Decision Making Patient presents here with hypertension he is asymptomatic we will give him a dose of losartan here. He has she has follow-up with cardiology in the morning on form as he is asymptomatic scalp mild hypertension he should discuss his blood pressure with them in the morning and take his log that he has for further adjustment. Medical Records I reviewed the patient's medical records. No radiology studies performed this visit EKG Data EKG 1: I personally reviewed and interpreted this EKG as follows: EKG interpretation date: 03/05/23 EKG interpretation time: 19:55 Interpretation: nsr hr [address] or t wave abnormalities qrs 81 qtc 349 Discharge Plan Discharge Patient Disposition: Home Clinical Impression: Hypertension Qualifiers: Hypertension type: unspecified Qualified Code(s): I10 - Essential (primary) hypertension Condition: Stable Prescriptions: No Action diltiazem HCl [Cartia XT] 120 mg capsule,extended release 24hr 120 mg PO DAILY multivitamin Tablet 1 tab PO DAILY coenzyme Q10 [CoQ-10] 100 mg capsule 200 mg PO DAILY Glucosamine Chondroitin 550-30-1 mg capsule 1 cap PO DAILY magnesium gluconate [Mag-G] 27 mg magnesium (500 mg) tablet 27 mg PO DAILY resveratrol 250 mg capsule 250 mg PO DAILY cholecalciferol (vitamin D3) 50 mcg (2,000 unit) capsule 50 mcg PO DAILY finasteride 5 mg tablet 5 mg PO QDAY Qty: 90 3RF atorvastatin 40 mg tablet 40 mg PO DAILY zinc gluconate 50 mg Tablet 50 mg PO DAILY Xarelto 20 mg tablet 20 mg PO DAILY Pacerone 200 mg Tablet See Rx Instructions .ROUTE .COMPLEX 30 Days Qty: 60 0RF Rx Instructions: 400 mg bid x 6 days, then drop dose to 400 mg once daily diltiazem HCl 30 mg Tablet 30 mg PO Q6H PRN (Reason: Atrial Fibrillation) Qty: 15 0RF Rx Instructions: dont use if bp systolic < 110 Discharge Orders: Discharge ED (Routine); Ordered 03/05/23 Ordered By: Alvin Arias Referrals: Myron Abbasi DO [Primary Care Provider] - Discharge Diet: Advance as tolerated Discharge Activity: Resume usual activity Patient Instructions: Hypertension (ED) Coding Level of Care Code ED Apartment Coordinator for Joseph Springer
[2023-03-05 20:47] VITALS: BP 134/66
[2023-03-05] MEDS: losartan 50 mg Tablet 25 MG PO (20:47)
[2023-03-05 20:56] VITALS: BP 156/76; PULSE 61; RESP 21; O2SAT 95
== END 2023-03-05 20:57 | disposition home or self-care (01) ==
PROVIDERS: Emergency Provider Emergency Medicine; PCP Electrodiagnostic Medicine
DX: I10 Essential (primary) hypertension (principal); E78.5 Hyperlipidemia, unspecified
CPT/HCPCS: 93005; 99283

== ENCOUNTER → 2023-03-06 08:36 | Outpatient (BNVA) | payer MEDICARE, OTHER, SELFPAY | PROVIDERS: PCP Electrodiagnostic Medicine; Visit Provider Nurse Practitioner Family | DX: I48.91 Unspecified atrial fibrillation (principal); I10 Essential (primary) hypertension; Z79.01 Long term (current) use of anticoagulants | CPT/HCPCS: 99213 ==

== ENCOUNTER 2023-09-16 23:10 | Emergency (ER) | payer MEDICARE, OTHER, SELFPAY ==
[2023-09-16 23:26] VITALS: BP 159/80; PULSE 65; RESP 16; TEMP 36.6; O2SAT 95
[2023-09-16] MEDS: lidocaine-epi 1% 20 mL INJ INJECTION (23:45)
--- NOTE | 2023-09-16 23:48 | ED_ITS ---
HPI - General Adult General: Chief complaint: General Medical Stated complaint: Domingo Carrion Stop Bleeding Time Seen by Provider: 09/16/23 23:31 History of Present Illness: Patient presents to the ER with the top of his tongue bleeding. Patient is an sure what he did to cause this bleeding. Patient is been trying to use an ice cube to stop it and has worked until he warms back up. Patient is on Xarelto for A-fib with RVR, Review of Systems General: Reports: 10 or more systems reviewed and unremarkable except in HPI and below PFSH ED PFSH: Medical History History of prostatitis Normal colonoscopy Hypertension Hyperlipidemia Elevated PSA Chronically elevated PSA with normal ADARSH's. 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 Negative biopsy and follow-up -3 T MRI. Surgical History Hx of transurethral resection of prostate H/O vasectomy Family History Mother , at age 78 Myocardial infarction (lateral wall) Father , at age 83 Emphysema lung Social History Smoking and tobacco/nicotine status: never used tobacco/nicotine Alcohol intake: never Marital status: Current occupational status: employed Physical Exam Const: COMMON NORMALS: no acute distress, average body habitus, patient oriented x3, no limitations, healthy appearing, alert and well nourished HENMT: COMMON NORMALS: normocephalic, atraumatic, hearing grossly normal bilaterally, external ears normal, Normal external nose present and moist oral mucous membranes HEAD & SCALP: normocephalic and atraumatic NOSE: Normal external nose present EXTERNAL EAR: Yes external ears normal OTHER: Tongue has 1 small spot of irritation is just constantly oozing. Neck/C-Spine: COMMON NORMALS: full ROM, no lymphadenopathy, supple, no meningeal signs, no JVD and Thyroid normal THYROID: Thyroid normal Chest: COMMONS NORMALS: normal inspection of the chest and normal palpation of entire chest wall Resp: COMMON NORMALS: normal respiratory effort, No retractions, No use of accessory muscles and clear to auscultation bilaterally AUSCULTATION: clear to auscultation bilaterally Cardio: COMMON NORMALS: no JVD, regular rate, regular rhythm, S1 normal heart sound present, S2 normal heart sound present, No gallops present (Cardio), No clicks present (Cardio), No murmurs present (Cardio) and No rub (Cardio) RATE: regular rate RHYTHM: regular rhythm HEART SOUNDS: S1 normal heart sound present and S2 normal heart sound present GI: COMMON NORMALS: Normal to inspection, nondistended, normoactive bowel carolee nds present, Soft to palpation, non-tender, No hepatosplenomegaly present and no masses PALPATION: Yes Soft to palpation and Yes No hepatosplenomegaly present Neuro: COMMON NORMALS: patient oriented x3 SENSORIUM/ORIENTATION: Yes alert MENINGEAL SIGNS: Yes no meningeal signs Course Vital Signs: Vital signs: Vital Signs Temperature 97.9 F 09/16/23 23:26 Pulse Rate 65 09/16/23 23:26 Respiratory Rate 16 09/16/23 23:26 Blood Pressure 159/80 09/16/23 23:26 Pulse Oximetry 95 09/16/23 23:26 MDM - General Adult Medical Decision Making 1 cc of lidocaine with epi was injected directly to the bleeding part of his tongue. This was after lidocaine and epi soaked gauze was placed and held for 10 minutes but did not cure the problem. The injection did work. Patient be discharged home. Medical Records I reviewed the patient's medical records. Lab Data I reviewed the patient's lab results. All radiology interpretation(s) finalized by discharge Discharge Plan Discharge Patient Disposition: Home Clinical Impression: Hemorrhage of tongue Condition: Stable Prescriptions: No Action diltiazem HCl [Cartia XT] 120 mg capsule,extended release 24hr 120 mg PO DAILY multivitamin Tablet 1 tab PO DAILY coenzyme Q10 [CoQ-10] 100 mg capsule 200 mg PO DAILY Glucosamine Chondroitin 550-30-1 mg capsule 1 cap PO DAILY magnesium gluconate [Mag-G] 27 mg magnesium (500 mg) tablet 27 mg PO DAILY resveratrol 250 mg capsule 250 mg PO DAILY cholecalciferol (vitamin D3) 50 mcg (2,000 unit) capsule 50 mcg PO DAILY finasteride 5 mg tablet 5 mg PO QDAY Qty: 90 3RF losartan 25 mg tablet 25 mg PO DAILY Qty: 90 0RF atorvastatin 40 mg tablet 40 mg PO DAILY zinc gluconate 50 mg Tablet 50 mg PO DAILY Xarelto 20 mg tablet 20 mg PO DAILY diltiazem HCl 30 mg Tablet 30 mg PO Q6H PRN (Reason: Atrial Fibrillation) Qty: 15 0RF Rx Instructions: dont use if bp systolic < 110 Discharge Orders: Discharge ED (Routine); Ordered 09/17/23 Ordered By: Dean Massey Referrals: Myron Abbasi DO [Primary Care Provider] - 1 week Activity Restrictions/Additional Instructions: Your tongue was injected lidocaine with epinephrine to help stop the bleeding. This shrink some blood vessels to this area. If your bleeding restarts please continue with your cold compresses and direct pressure to the area. If your bleeding is uncontrolled please return to the ER. Thank you for choosing [facility] for your healthcare needs today. Please realize that you were seen in the emergency department and that we are providing you with an emergency medical screening exam and this may not be a complete and all exclusive of all testing and/or medical workup we may need to determine your element or severity of your illness. It is very important that you follow-up as instructed with your primary care provider or specialist for the additional evaluation and to discuss your medical treatment plan. You may return to the emergency department should you have concerns or if your condition changes or worsens in any way. Coding Level of Care Code ED Strategies Analyst for Joseph Springer
[2023-09-17 02:01] VITALS: PULSE 64; RESP 18; O2SAT 96
== END 2023-09-17 02:02 | disposition home or self-care (01) ==
PROVIDERS: Emergency Provider Emergency Medicine; PCP Electrodiagnostic Medicine
DX: K14.8 Other diseases of tongue (principal); I10 Essential (primary) hypertension; E78.5 Hyperlipidemia, unspecified
CPT/HCPCS: 99284